=== PATIENT | female | born 1940 | race Caucasian/White ===

== ENCOUNTER → 2018-02-18 18:35 | Outpatient (CLI) | payer MEDICARE, OTHER, SELFPAY ==
--- NOTE | 2018-02-18 | DI.RAD.S_ITS ---
PROCEDURE: XR HIP W PEL IF DONE LT 2V INDICATIONS: radiculopathy,pain in left hip TECHNIQUE: AP pelvis with lateral view(s) of the left hip. COMPARISON: [facility], , HIP 2V LEFT, 01/19/2012, 13:51. FINDINGS: Bones: No fractures or dislocations. Pelvic ring appears intact. No suspicious bony lesions. Prior right total hip arthroplasty, previously described spine posterior fusion devices are again noted. Soft tissues: The visualized bowel gas pattern is normal. No suspicious soft tissue calcifications. IMPRESSION: Source of new pain at the left hip is not. Prior right total hip arthroplasty and spine fusion device is stable over time. Dictated by: Familia Garner M.D. on 02/19/2018 at 8:36 Approved by: Familia Garner M.D. on 02/19/2018 at 8:38
--- NOTE | 2018-02-18 | DI.RAD.S_ITS ---
PROCEDURE: XR LUMBAR SPINE 2-3V INDICATIONS: radiculopathy,pain in left hip TECHNIQUE: 3 views of the lumbar spine were acquired. COMPARISON: [facility], CR, XR LUMBAR SPINE 2 OR 3 VIEWS, 06/24/2017, 15:18. [facility], , PVE UNILATERAL LEFT, 08/31/2017, 13:06. [facility], CR, XR HIP W PEL IF DONE LT 2V, 02/18/2018, 18:29. [facility], CR, L-SPINE 2-3 VIEWS, 12/05/2014, 9:45. [facility], CR, L-SPINE 2-3 VIEWS, 05/02/2014, 16:55. [facility], CR, L-SPINE 2-3 VIEWS, 07/29/2011, 13:00. FINDINGS: Bones: 5 [id number] vertebrae are present. There is stable appearing bony alignment with reference to prior lumbosacral spine plain films, with grade 1 retrolisthesis of L2 on L3 and slight grade 1 retrolisthesis of L3 on L4. Stable appearing posterior spine fusion with interbody disc prosthesis placement is noted again at L4-S1.. No vertebral body compression fractures. No suspicious bony lesions. Soft tissues: Overlying bowel gas pattern is normal. No suspicious soft tissue calcifications. IMPRESSION: No trauma found. Stable appearing degenerative disc disease and facet osteoarthritis along the thoracolumbar junction and lumbosacral spine in this patient has undergone stable appearing prior posterior spine fusion crossing from L4-S1. No compression fracture, chronic or acute, is found. Dictated by: Familia Garner M.D. on 02/19/2018 at 8:33 Approved by: Familia Garner M.D. on 02/19/2018 at 8:36
== END ==
PROVIDERS: PCP Family Medicine; Visit Provider Family Medicine
DX: M51.17 Intervertebral disc disorders with radiculopathy, lumbosacral region (principal); M51.15 Intervertebral disc disorders with radiculopathy, thoracolumbar region; M25.552 Pain in left hip; Z96.641 Presence of right artificial hip joint
CPT/HCPCS: 72100; 73502

== ENCOUNTER → 2018-05-18 17:19 | Outpatient (CLI) | payer MEDICARE, OTHER, SELFPAY ==
--- NOTE | 2018-05-18 17:21 | DI.RAD.S_ITS ---
PROCEDURE: XR CHEST 2V INDICATIONS: BRONCHITIS, cough TECHNIQUE: 2 views of the chest were acquired. COMPARISON: [facility], , CHEST 2 VIEW, 04/22/2017, 14:01. [facility], CHEST 2 VIEW, 10/17/2015, 17:47. [facility], , CHEST 1 VIEW, 12/09/2014, 12:30. FINDINGS: Surgical changes and devices: None. Lungs and pleura: No pleural effusions or pneumothorax. Lungs are clear. Mediastinum: Mediastinal contours are normal again noted are multiple moderate-sized and moderately large calcified lymph nodes stable over time. Heart size is normal. Bones and chest wall: No new suspicious bony abnormalities, and prior thoracotomy on the right appears to have been performed. Soft tissues appear unremarkable. IMPRESSION: Prior right thoracotomy, multiple calcified moderate and moderately large lymph nodes again noted but no definite foreign exchange clerk time and no pneumonia is seen. Dictated by: Familia Garner M.D. on 05/19/2018 at 8:33 Approved by: Familia Garner M.D. on 05/19/2018 at 8:35
--- NOTE | 2018-05-18 17:22 | DI.RAD.S_ITS ---
PROCEDURE: XR ANKLE LT MIN 3V INDICATIONS: LEFT ANKLE PAIN TECHNIQUE: 3 views of the ankle were acquired. COMPARISON: None. FINDINGS: Bones: No definite fractures or dislocations, but the base of the fourth and fifth metatarsal bones are relatively poorly visualized. Ankle mortise is normally aligned. No suspicious bony lesions. Soft tissues: No tibiotalar joint effusion. Achilles tendon appears normal. IMPRESSION: Close clinical followup is recommended given the fact that the base of the fourth and fifth metatarsal bones are relatively poorly visualized. A definite fracture is not seen but is unusual symptoms persist followup delayed plain films or CT scanning would be recommended to more accurately assess those 2 areas. Dictated by: Familia Garner M.D. on 05/19/2018 at 10:31 Approved by: Familia Garner M.D. on 05/19/2018 at 10:32
== END ==
PROVIDERS: PCP Family Medicine; Visit Provider Family Medicine
DX: J20.9 Acute bronchitis, unspecified (principal); M25.572 Pain in left ankle and joints of left foot
CPT/HCPCS: 71046; 73610

== ENCOUNTER 2018-06-10 15:08 | Emergency (ER) | payer MEDICARE, OTHER, SELFPAY ==
[2018-06-10 15:11] VITALS: BP 126/67; PULSE 93; RESP 18; TEMP 36.8; O2SAT 100
--- NOTE | 2018-06-10 15:22 | ED_ITS ---
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 She hit the R. side of her head on the chair arm or floor. She also thinks she bumped her L. hip somehow (she has chronic pain on that side but states that the hip is sore). she denies any LOC. She denies any vision change, nausea or vomiting. She states that she has a very slight headache. She states that she was able to get up and walk with her walker. She takes pain medication for chronic left- sided pain which she took prior to arrival, and she thinks the hip is just sore. She denies any other injury. Denies new pain in her neck, back, or other extremities. She is on warfarin for history of blood clots. Related Data Home Medications Medication Instructions Recorded Confirmed amlodipine [Norvasc] 10 mg PO QDAY #0 tab 06/09/13 06/10/18 cyclobenzaprine 10 mg PO TIDP PRN #0 tab 06/09/13 06/10/18 levothyroxine 0.088 mg PO QDAY #0 tab 06/09/13 06/10/18 simvastatin 40 mg PO BEDTIME #0 tab 06/09/13 06/10/18 albuterol sulfate [Ventolin HFA] 1 puff INHALATION PRN PRN 06/10/18 06/10/18 ascorbic acid (vitamin C) [Vitamin 1 g PO DAILY 06/10/18 06/10/18 C] aspirin 81 mg PO DAILY 06/10/18 06/10/18 budesonide [Pulmicort] 0.5 mg INHALATION BID 06/10/18 06/10/18 calcium carbonate-vitamin D3 1 tab PO BID 06/10/18 06/10/18 [Calcium 600 with Vitamin D3] diclofenac sodium 1 tab PO DAILY 06/10/18 06/10/18 docusate sodium 1 cap PO BID 06/10/18 06/10/18 ferrous sulfate 1 tab PO BID 06/10/18 06/10/18 flaxseed oil 2 cap PO DAILY 06/10/18 06/10/18 fluticasone-salmeterol [Advair 1 puff INHALATION BID 06/10/18 06/10/18 Diskus] hydrocodone-acetaminophen 1 tab PO PRN PRN 06/10/18 06/10/18 multivitamin 1 tab PO DAILY 06/10/18 06/10/18 omeprazole magnesium [Prilosec OTC] 1 tab PO PRN PRN 06/10/18 06/10/18 polyethylene glycol 3350 [Miralax] 17 g PO DAILY PRN 06/10/18 06/10/18 sennosides [senna] 1 tab PO DAILY 06/10/18 06/10/18 warfarin 1 dose PO DIRECTED 06/10/18 06/10/18 Allergies Allergy/AdvReac Type Severity Reaction Status Date / Time Sulfa (Sulfonamide Allergy Severe HIVES Verified 06/10/18 15:13 Antibiotics) [SULFA (SULFONAMIDE ANTIBIOTICS)] latex [LATEX] Allergy Unknown PT Verified 06/10/18 15:13 STATES ONLY WHEN SHE WEARS LATEX GLOVES-DERMATITIS Review of Systems <Lien Pena PA-C - Last Filed: 06/10/18 22:07> Review of Systems All systems reviewed & are unremarkable except as noted in HPI and below Exam <Lien Pena PA-C - Last Filed: 06/10/18 22:07> Narrative Exam Narrative: GENERAL APPEARANCE: Patient sitting comfortably, in no distress. HEENT: Small R. parietal hematoma. No abrasion or laceration. PERRL, EOMI, normal TMs and oropharynx NECK: Supple LUNGS: Clear to auscultation bilaterally. HEART: Rate and rhythm regular without murmur, normal S1 and S2, no S3 or S4. NEUROLOGIC: Alert and oriented, normal speech MUSCULOSKELETAL: Full Csp AROM, no point tenderness over cervical, thoracic or lumbar spine. Mild tenderness over the left lateral and posterior hip. Left lower extremity strength 4/5 all pagan, 5/5 on the right. DERMATOLOGIC: scattered ecchymoses on the upper extremities in various stages of healing, no ecchymoses on the left hip Initial Vital Signs Initial Vital Signs: Vital Signs Temperature 98.3 F 06/10/18 15:11 Pulse Rate 93 H 06/10/18 15:11 Respiratory Rate 18 06/10/18 15:11 Blood Pressure 126/67 06/10/18 15:11 Pulse Oximetry 100 06/10/18 15:11 <Rosy Estes DO - Last Filed: 06/11/18 08:48> Initial Vital Signs Initial Vital Signs: Vital Signs Temperature 98.3 F 06/10/18 15:11 Pulse Rate 93 H 06/10/18 15:11 Respiratory Rate 18 06/10/18 15:11 Blood Pressure 126/67 06/10/18 15:11 Pulse Oximetry 100 06/10/18 15:11 Course <Lien Pena PA-C - Last Filed: 06/10/18 22:07> Orders Ordered: ED Orders 06/10/18 15:35 CT head/brain wo con Stat XR hip w pel if done LT 2V Stat 06/10/18 15:59 Prothrombin Time INR Stat Vital Signs - 8 hr 06/10/18 15:11 06/10/18 16:44 Temperature 98.3 F Pulse Rate 93 H 83 Respiratory Rate 18 Blood Pressure 126/67 Blood Pressure [Right Arm] 134/53 L Pulse Oximetry 100 93 <DO Evi Villa Last Filed: 06/11/18 08:48> Orders Ordered: ED Orders 06/10/18 15:35 CT head/brain wo con Stat XR hip w pel if done LT 2V Stat 06/10/18 15:59 Prothrombin Time INR Stat Vital Signs - 8 hr 06/10/18 15:11 06/10/18 16:44 Temperature 98.3 F Pulse Rate 93 H 83 Respiratory Rate 18 Blood Pressure 126/67 Blood Pressure [Right Arm] 134/53 L Pulse Oximetry 100 93 MDM - Fall <CAITLIN Diana Last Filed: 06/10/18 22:07> Lab Data Lab Results 06/10/18 Range/Units 15:59 PT 25.8 H (10.1-12.7) SECONDS INR 2.3 H (0.9-1.3) <DO Evi Villa Last Filed: 06/11/18 08:48> Lab Data Lab Results 06/10/18 Range/Units 15:59 PT 25.8 H (10.1-12.7) SECONDS INR 2.3 H (0.9-1.3) Discharge Plan Departure Patient Disposition: Home Clinical Impression: Contusion of head, Acute hip pain Discharge Date/Time: 06/10/18 17:12 Interventions: ED Discharge Assessment Last Done: 06/10/18 17:04 Instructions: DI for Concussion Activity Restrictions/Additional Instructions: There was no acute injury found on your imaging studies. I have given you the instructions for concussion as you may have a very mild one even though you did not lose consciousness. Please take it easy today and be sure to use your walker at all times. Please return as we talked about if you have any acutely worsening symptoms. Otherwise, please follow-up with your PCP next week for recheck to assess your progress and check your INR. (This was at goal, 2.3, on your blood test today). Prescriptions: No Action simvastatin 40 MG tablet 40 mg PO BEDTIME Qty: 0 RF: 0 amlodipine [Norvasc] 5 MG tablet 10 mg PO QDAY Qty: 0 RF: 0 levothyroxine 88 mcg Tablet 0.088 mg PO QDAY Qty: 0 RF: 0 cyclobenzaprine 10 MG tablet 10 mg PO TIDP PRN (Reason: Spasms) Qty: 0 RF: 0 fluticasone-salmeterol [Advair Diskus] 250-50 mcg/dose blister with device 1 puff Inhalation BID RF: 0 hydrocodone-acetaminophen 5-325 mg tablet 1 tab PO PRN PRN (Reason: pain) RF: 0 warfarin 5 mg tablet 1 dose PO DIRECTED RF: 0 diclofenac sodium 75 mg tablet,delayed release (DR/EC) 1 tab PO DAILY RF: 0 albuterol sulfate [Ventolin HFA] 90 mcg/actuation HFA aerosol inhaler 1 puff Inhalation PRN PRN (Reason: Shortness Of Breath) RF: 0 multivitamin Tablet 1 tab PO DAILY RF: 0 sennosides [senna] 8.6 mg Tablet 1 tab PO DAILY RF: 0 ascorbic acid (vitamin C) [Vitamin C] 1,000 mg Tablet 1 g PO DAILY RF: 0 polyethylene glycol 3350 [Miralax] 17 gram Powder In Packet 17 g PO DAILY PRN (Reason: Constipation) RF: 0 aspirin 81 mg Tablet,Delayed Release (Dr/Ec) 81 mg PO DAILY RF: 0 flaxseed oil 1,000 mg Capsule 2 cap PO DAILY RF: 0 ferrous sulfate 325 mg (65 mg iron) Tablet 1 tab PO BID RF: 0 budesonide [Pulmicort] 0.5 mg/2 mL Suspension For Nebulization 0.5 mg INHALATION BID RF: 0 docusate sodium 250 mg Capsule 1 cap PO BID RF: 0 omeprazole magnesium [Prilosec OTC] 20 mg Tablet,Delayed Release (Dr/Ec) 1 tab PO PRN PRN (Reason: Heartburn) RF: 0 calcium carbonate-vitamin D3 [Calcium 600 with Vitamin D3] 600 mg(1,500mg) - 400 unit Capsule 1 tab PO BID RF: 0 Referrals: Sean Ayala MD [Primary Care Provider] - <Rosy Estes DO - Last Filed: 06/11/18 08:48> Cosign ED Attending Cosignature Attestation: I was immediately available in the department for consultation. Documentation has been reviewed. I agree with assessment and plan.
--- NOTE | 2018-06-10 15:35 | DI.RAD.S_ITS ---
PROCEDURE: XR HIP W PEL IF DONE LT 2V INDICATIONS: fall, pain TECHNIQUE: AP pelvis with lateral view(s) of the left hip(s). COMPARISON: [facility], , XR HIP W PEL IF DONE LT 2V, 02/18/2018, 18:29. FINDINGS: Bones: No fractures or dislocations. Pelvic ring appears intact. No suspicious bony lesions. A right hip arthroplasty is seen, without findings of failure or loosening. Lower lumbar spine postoperative changes are partially seen. Soft tissues: The visualized bowel gas pattern is normal. No suspicious soft tissue calcifications. IMPRESSION: No acute fracture can be seen. If there is point tenderness (or other clinical suspicion for a fracture not seen on these images) please consider a dedicated CT for further evaluation. Postoperative change of the right hip and lower lumbar spine can be seen. Dictated by: Nelson Medina M.D. on 06/10/2018 at 15:16 Approved by: Nelson Medina M.D. on 06/10/2018 at 15:18
--- NOTE | 2018-06-10 15:35 | DI.CT.S_ITS ---
PROCEDURE: CT HEAD/BRAIN WO CON INDICATIONS: fall, on warfarin, R. parietal hematoma TECHNIQUE: Noncontrast 4.5 mm thick angled axial sections acquired from the foramen magnum to the vertex, with coronal and sagittal reformats. For radiation dose reduction, the following was used: automated exposure control, adjustment of mA and/or kV according to patient size. COMPARISON: [facility], CT, HEAD WITHOUT CONTRAST, 05/17/2015, 10:13. FINDINGS: Image quality: Excellent. CSF spaces: Basal cisterns are patent. No extra-axial fluid collections. Ventricles are normal in size and shape. There is parenchymal volume loss. This is more pronounced involving the anterior bilateral frontal lobes. Brain: No midline shift. No intracranial masses or hemorrhage. Nash-white matter interface is normal. There continues to be a moderate-sized area of encephalomalacia involving the right frontal/parietal lobes. Skull and face: Calvarium and visualized facial bones are intact, without suspicious lesions. Sinuses: Visualized sinuses and mastoids are clear. IMPRESSION: 1. No acute intracranial hemorrhage. 2. 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 3. Moderate parenchymal volume loss. Dictated by: Arnoldo Sierra M.D. on 06/10/2018 at 15:10 Approved by: Arnoldo Sierra M.D. on 06/10/2018 at 15:11
[2018-06-10 16:18] LABS: INR 2.3 (0.9-1.3); Prothrombin Time 25.8 SECONDS (10.1-12.7)
[2018-06-10 16:44] VITALS: BP 134/53; PULSE 83; O2SAT 93
== END 2018-06-10 17:12 | disposition home or self-care (01) ==
PROVIDERS: Emergency Provider Internal Medicine; PCP Family Medicine
DX: S00.93XA Contusion of unspecified part of head, initial encounter (principal); M25.559 Pain in unspecified hip; W19.XXXA Unspecified fall, initial encounter
CPT/HCPCS: 36415; 70450; 73502; 85610; 99282; 99284

== ENCOUNTER → 2018-07-08 15:55 | Outpatient (CLI) | payer MEDICARE, OTHER, SELFPAY ==
--- NOTE | 2018-07-08 16:03 | DI.US.S_ITS ---
PROCEDURE: US ARTERIAL DUPLEX LE LT INDICATIONS: ACUTE EMBOLISM AND THROMBOSIS OF DEEP TECHNIQUE: Color and pulse Doppler interrogation was performed of the left lower extremity arterial system, with image documentation. COMPARISON: None. FINDINGS: Normal-appearing, triphasic and biphasic waveforms are seen. The flow velocities are likewise within normal limits. No focal area of increased flow velocity is seen to suggest a focal stenosis. Antegrade flow is confirmed to the distal aspects of each of the trifurcation vessels. Scattered atherosclerotic plaque can be seen. IMPRESSION: No hemodynamically significant stenosis can be seen. Dictated by: Nelson Medina M.D. on 07/08/2018 at 16:04 Approved by: Nelson Medina M.D. on 07/08/2018 at 16:06
== END ==
PROVIDERS: Family Provider Family Medicine; PCP Family Medicine; Visit Provider Family Medicine
DX: I82.409 Acute embolism and thrombosis of unspecified deep veins of unspecified lower extremity (principal)
CPT/HCPCS: 93926

== ENCOUNTER → 2018-10-10 16:46 | Outpatient (CLI) | payer MEDICARE, OTHER, SELFPAY ==
--- NOTE | 2018-10-10 16:53 | DI.RAD.S_ITS ---
PROCEDURE: XR CHEST 2V INDICATIONS: J20.9/L03.116 TECHNIQUE: 2 views of the chest were acquired. COMPARISON: [facility], CR, CHEST 1 VIEW, 12/07/2014, 9:17. [facility], CR, XR CHEST 2V, 05/18/2018, 17:01. [facility], CR, CHEST 2 VIEW, 04/22/2017, 14:01. [facility], CT, PE STUDY (CTA CHEST), 06/09/2013, 10:39. FINDINGS: Surgical changes and devices: None. Lungs and pleura: Bibasilar linear opacities are likely atelectasis or scars. No pleural effusions or pneumothorax. Mediastinum: Mediastinal contours are normal. Heart size is normal. Calcified granulomas in the mediastinum and left hilum. Bones and chest wall: Deformity of the right sixth rib. No suspicious bony abnormalities. Soft tissues appear unremarkable. IMPRESSION: 1. Bibasilar atelectasis or scars. 2. Remote granulomatous disease in mediastinum and left hilum. 3. 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 Dictated by: Issa Poe M.D. on 10/10/2018 at 17:59 Approved by: Issa Poe M.D. on 10/10/2018 at 18:03
--- NOTE | 2018-10-10 16:53 | DI.RAD.S_ITS ---
PROCEDURE: XR TIBIA FIBULA RT 2V INDICATIONS: Cellulitis of anterior lower leg. TECHNIQUE: 2 views of the tibia and fibula were acquired. COMPARISON: None. FINDINGS: Bones: No fractures or dislocations. No suspicious bony lesions. There is left knee total arthroplasty. Small knee joint effusion is present. Soft tissues: No suspicious soft tissue calcifications or masses. No soft tissue gas. IMPRESSION: No bony erosions or soft tissue gas. Dictated by: Issa Poe M.D. on 10/10/2018 at 18:03 Approved by: Issa Poe M.D. on 10/10/2018 at 18:04
== END ==
PROVIDERS: Family Provider Family Medicine; PCP Family Medicine; Visit Provider Family Medicine
DX: J20.9 Acute bronchitis, unspecified (principal); L03.116 Cellulitis of left lower limb
CPT/HCPCS: 71046; 73590

== ENCOUNTER → 2018-11-15 18:15 | Outpatient (CLI) | payer MEDICARE, OTHER, SELFPAY ==
--- NOTE | 2018-11-15 18:25 | DI.RAD.S_ITS ---
PROCEDURE: XR CHEST 2V INDICATIONS: COUGH TECHNIQUE: 2 views of the chest were acquired. COMPARISON: [facility], CR, XR CHEST 2V, 10/10/2018, 16:55. FINDINGS: Surgical changes and devices: None. Lungs and pleura: Bibasilar atelectasis/scarring are again seen. No definite focal infiltrate. No pleural effusions or pneumothorax. Mediastinum: Torturous thoracic aorta is seen. Heart size is enlarged. Bones and chest wall: Chronic deformity of right sixth rib is again noted and unchanged area No suspicious bony abnormalities. Soft tissues appear unremarkable. IMPRESSION: No significant changes from previous study. Cardiomegaly and bibasilar scarring/atelectasis. No definite focal infiltrate. Dictated by: Ken Grewal M.D. on 11/15/2018 at 18:47 Approved by: Ken Grewal M.D. on 11/15/2018 at 18:48
== END ==
PROVIDERS: Family Provider Family Medicine; PCP Family Medicine; Visit Provider Family Medicine
DX: J45.909 Unspecified asthma, uncomplicated (principal); R05 Cough; I51.7 Cardiomegaly
CPT/HCPCS: 71046

== ENCOUNTER → 2019-01-12 17:14 | Outpatient (CLI) | payer MEDICARE, OTHER, SELFPAY ==
--- NOTE | 2019-01-12 | DI.RAD.S_ITS ---
PROCEDURE: XR CHEST 2V INDICATIONS: Acute bronchitis, unspecified TECHNIQUE: 2 views of the chest were acquired. COMPARISON: [facility], CR, XR CHEST 2V, 11/15/2018, 18:28. FINDINGS: Surgical changes and devices: None. Lungs and pleura: There is a small right pleural effusion. Prior thoracostomy scar is noted within the right midlung. Streaky opacities are present at the left lung base. These are unchanged from the study dated 11/15/18. Mediastinum: Mediastinal contours are normal. Heart size is normal. Bones and chest wall: No suspicious bony abnormalities. Midright hemithorax rib resection is redemonstrated. Soft tissues appear unremarkable. IMPRESSION: 1. Small right pleural effusion. 2. Radiopacities at the left lung base may represent pulmonary scar, although atelectasis, aspiration, and infection could also cause this appearance. Dictated by: Ce Rodriguez M.D. on 01/13/2019 at 9:06 Approved by: Ce Rodriguez M.D. on 01/13/2019 at 9:07
== END ==
PROVIDERS: PCP Family Medicine; Visit Provider Family Medicine
DX: J20.9 Acute bronchitis, unspecified (principal); J90 Pleural effusion, not elsewhere classified
CPT/HCPCS: 71046

== ENCOUNTER → 2019-01-21 12:29 | Outpatient (CLI) | payer MEDICARE, OTHER, SELFPAY ==
--- NOTE | 2019-01-21 | DI.CT.S_ITS ---
PROCEDURE: CT CHEST WO CON INDICATIONS: PLEURAL EFFUSION TECHNIQUE: Noncontrast 5 mm thick sections acquired from the pulmonary apices to the posterior costophrenic angles. 7 mm thick coronal and sagittal MIP reformats were then acquired. For radiation dose reduction, the following was used: automated exposure control, adjustment of mA and/or kV according to patient size. COMPARISON: [facility], CT, PE STUDY (CTA CHEST), 06/09/2013, 10:39. FINDINGS: Image quality: Excellent. Lungs and pleura: Surgical changes of right lower lobectomy. Irregular, calcific pleural plaquing along the posterior surface in the midlung. Smooth left apical scarring. 4 mm left lateral upper lobe groundglass nodule previously present. Coarsely calcified granulomatous nodules anteriorly in the lingula. Mild left posterior lung base atelectatic change. No pleural effusions or pneumothorax. Central and peripheral airways are patent and normal in caliber. Mediastinum: Heart size is normal. No pericardial effusion. Moderate coarse mitral annular and aortic valvular calcification. 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 No other adenopathy. Thoracic aorta and central pulmonary arteries are normal in size. Esophagus is normal in caliber. Small hiatal hernia. Bones and chest wall: Partial right sixth rib resection. No suspicious bony lesions. No vertebral body compression fractures. No axillary or supraclavicular adenopathy by size criteria. Thyroid gland is normal. Abdomen: Visualized upper abdominal solid organs demonstrate multiple calcified granulomas throughout the liver and spleen. No suspicious masses. IMPRESSION: 1. Interval resolution of pleural effusion. 2. Surgical change of right lower lobectomy without evidence of recurrent disease. 3. Changes of chronic granulomatous disease involving mediastinal nodes, lingula, liver, and spleen. 4. 4 mm left upper lobe lung nodule, stable compared to prior study. Dictated by: Lydia Sheets M.D. on 01/21/2019 at 13:27 Approved by: Lydia Sheets M.D. on 01/21/2019 at 14:36
== END ==
PROVIDERS: PCP Family Medicine; Visit Provider Family Medicine
DX: J90 Pleural effusion, not elsewhere classified (principal); R91.1 Solitary pulmonary nodule
CPT/HCPCS: 71250

== ENCOUNTER → 2019-03-18 16:32 | Outpatient (CLI) | payer MEDICARE, OTHER, SELFPAY ==
--- NOTE | 2019-03-18 16:36 | DI.RAD.S_ITS ---
PROCEDURE: XR ANKLE LT MIN 3V INDICATIONS: LEFT ANKLE PAIN TECHNIQUE: 3 views of the ankle were acquired. COMPARISON: [facility], CR, XR ANKLE LT MIN 3V, 05/18/2018, 17:01. FINDINGS: Bones: No fractures or dislocations. Ankle mortise is normally aligned. No suspicious bony lesions. Soft tissues: No tibiotalar joint effusion. Achilles tendon appears normal. IMPRESSION: Left ankle without acute radiographic abnormalities. Dictated by: Franc Easton M.D. on 03/18/2019 at 17:03 Approved by: Franc Easton M.D. on 03/18/2019 at 17:04
== END ==
PROVIDERS: PCP Family Medicine; Visit Provider Family Medicine
DX: M25.572 Pain in left ankle and joints of left foot (principal)
CPT/HCPCS: 73610

== ENCOUNTER → 2019-06-07 17:59 | Outpatient (CLI) | payer MEDICARE, OTHER, SELFPAY ==
--- NOTE | 2019-06-07 | DI.RAD.S_ITS ---
PROCEDURE: XR HIP W PEL IF DONE RT 2V INDICATIONS: RT HIP PAIN I80.13 TECHNIQUE: AP pelvis with lateral view(s) of the right hip(s). COMPARISON: [facility], CR, XR LUMBAR SPINE 2 OR 3 VIEWS, 06/24/2017, 15:18. [facility], CR, XR HIP W PEL IF DONE LT 2V, 06/10/2018, 15:15. FINDINGS: Bones: No fractures or dislocations. Stable postsurgical changes of lower lumbar fusion and discectomies of L4-S1 without hardware complication. Stable postsurgical changes of right total hip arthroplasty. No bony abnormalities identified underlying the skin marker of the lateral right hip localizing area of palpable concern. Pelvic ring appears intact. No suspicious bony lesions. Soft tissues: The visualized bowel gas pattern is normal. No suspicious soft tissue calcifications. No suspicious soft tissue abnormalities underlying the skin marker. IMPRESSION: Stable radiographic evaluation of the right hip and pelvis without acute fracture or malalignment. Stable postoperative changes of prior lower lumbar fusion and right hip arthroplasty. No evidence for hardware complication. There are no visible soft tissue or osseous abnormalities underlying the skin marker/BB marker noted over the lateral right upper thigh/hip localizing area of palpable concern. Recommend clinical followup with further imaging evaluation as needed with either ultrasound or CT/MRI. Dictated by: Franc Easton M.D. on 06/08/2019 at 12:54 Approved by: Franc Easton M.D. on 06/08/2019 at 12:59
== END ==
PROVIDERS: PCP Family Medicine; Visit Provider Family Medicine
DX: M25.551 Pain in right hip (principal); Z98.1 Arthrodesis status; Z96.641 Presence of right artificial hip joint
CPT/HCPCS: 73502

== ENCOUNTER → 2019-09-21 17:29 | Outpatient (CLI) | payer MEDICARE, OTHER, SELFPAY ==
--- NOTE | 2019-09-21 | DI.RAD.S_ITS ---
PROCEDURE: XR CHEST 2V INDICATIONS: J20.9 TECHNIQUE: 2 views of the chest were acquired. COMPARISON: [facility], , XR CHEST 2V, 01/12/2019, 17:20. [facility], CR, XR CHEST 2V, 11/15/2018, 18:28. FINDINGS: Surgical changes and devices: None. Lungs and pleura: Lungs are clear. No pleural effusions or pneumothorax. Mediastinum: Mediastinal contours are normal. Partially calcified mediastinal adenopathy has been previously present and is again well visualized Heart size is normal. Bones and chest wall: No suspicious bony abnormalities. Soft tissues appear unremarkable. IMPRESSION: Old granulomatous disease, partially calcified lymph nodes within the mediastinum. Dictated by: aFmilia Garner M.D. on 09/21/2019 at 18:29 Approved by: Familia Garner M.D. on 09/21/2019 at 18:30
== END ==
PROVIDERS: PCP Family Medicine; Visit Provider Family Medicine
DX: J20.9 Acute bronchitis, unspecified (principal)
CPT/HCPCS: 71046

== ENCOUNTER 2019-09-22 13:02 | Emergency (ER) | payer MEDICARE, OTHER, SELFPAY ==
[2019-09-22 13:16] VITALS: BP 142/70; PULSE 82; RESP 15; TEMP 36; BMI 26.2
--- NOTE | 2019-09-22 13:23 | DI.CT.S_ITS ---
PROCEDURE: CT HEAD/BRAIN WO CON INDICATIONS: head injury on coumadin TECHNIQUE: Noncontrast 4.5 mm thick angled axial sections acquired from the foramen magnum to the vertex, with coronal and sagittal reformats. For radiation dose reduction, the following was used: automated exposure control, adjustment of mA and/or kV according to patient size. COMPARISON: [facility], CT, CT HEAD/BRAIN WO CON, 06/10/2018, 15:43. FINDINGS: Image quality: Excellent. CSF spaces: Basal cisterns are patent. No extra-axial fluid collections. Ventricles are prominent in size with corresponding parenchymal volume loss. Brain: No midline shift. No intracranial masses or hemorrhage. Nash-white matter interface is normal. Incidental note is made of a punctate focus of increased density along the right tentorium, which is unchanged since the prior study and of doubtful clinical significance. Encephalomalacia involving the right parietal lobe is unchanged. Skull and face: Calvarium and visualized facial bones are intact, without suspicious lesions. Soft tissue edema/hemorrhage overlying the left supraorbital region is present without an underlying fracture evident. Sinuses: Visualized sinuses and mastoids are clear. IMPRESSION: 1. No acute intracranial hemorrhage. 2. Soft tissue swelling/hemorrhage overlying the left supraorbital region without an underlying displaced fracture. 3. Unchanged area of right parietal encephalomalacia. Dictated by: Arnoldo Sierra M.D. on 09/22/2019 at 12:44 Approved by: Arnoldo Sierra M.D. on 09/22/2019 at 12:46
--- NOTE | 2019-09-22 14:07 | ED_ITS ---
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 She hit her head on the doorframe, then fell backwards, hitting left posterior scalp. She thinks she hit her left arm on the door frame on the way down also, causing a laceration. She states she did not pass out and knew exactly what happened. She denies any vision change, headache, or vomiting. She states that she has some bruising on her arm as well as the laceration but has not noted pain. She states she has nerve pain that is residual from CVA which is unchanged. She has not noted new weakness in the extremities. She denies any pain in her neck or difficulty with movement. No spine pain noted. She does not remember when her last tetanus vaccine was. She takes warfarin due to history of DVT Related Data Home Medications Medication Instructions Recorded Confirmed amlodipine [Norvasc] 10 mg PO DAILY #0 tab 06/09/13 09/22/19 cyclobenzaprine 10 mg PO TIDP PRN #0 tab 06/09/13 09/22/19 levothyroxine 0.088 mg PO DAILY #0 tab 06/09/13 09/22/19 simvastatin 40 mg PO BEDTIME #0 tab 06/09/13 09/22/19 albuterol sulfate [Ventolin HFA] 1 puff INHALATION PRN PRN 06/10/18 09/22/19 ascorbic acid (vitamin C) [Vitamin 1 g PO DAILY 06/10/18 06/10/18 C] aspirin 81 mg PO DAILY 06/10/18 06/10/18 budesonide [Pulmicort] 0.5 mg INHALATION BID 06/10/18 06/10/18 calcium carbonate-vitamin D3 1 tab PO BID 06/10/18 06/10/18 [Calcium 600 with Vitamin D3] diclofenac sodium 75 mg PO DAILY 06/10/18 09/22/19 docusate sodium 1 cap PO BID 06/10/18 06/10/18 ferrous sulfate 1 tab PO BID 06/10/18 06/10/18 flaxseed oil 2 cap PO DAILY 06/10/18 06/10/18 fluticasone propion-salmeterol 1 puff INHALATION BID 06/10/18 09/22/19 [Advair Diskus] hydrocodone-acetaminophen 1 tab PO PRN PRN 06/10/18 09/22/19 multivitamin 1 tab PO DAILY 06/10/18 06/10/18 omeprazole magnesium [Prilosec OTC] 1 tab PO PRN PRN 06/10/18 06/10/18 polyethylene glycol 3350 [Miralax] 17 g PO DAILY PRN 06/10/18 06/10/18 sennosides [senna] 1 tab PO DAILY 06/10/18 06/10/18 warfarin 1 dose PO DIRECTED 06/10/18 06/10/18 Allergies Allergy/AdvReac Type Severity Reaction Status Date / Time Sulfa (Sulfonamide Allergy Severe HIVES Verified 09/22/19 13:16 Antibiotics) [SULFA (SULFONAMIDE ANTIBIOTICS)] latex [LATEX] Allergy Unknown PT Verified 09/22/19 13:16 STATES ONLY WHEN SHE WEARS LATEX GLOVES-DERMATITIS Review of Systems <Lien Pena PA-C - Last Filed: 09/22/19 19:24> Review of Systems ROS Unobtainable: All systems reviewed & are unremarkable except as noted in HPI and below Patient History <Lien Pena PA-C - Last Filed: 09/22/19 19:24> Medical History (Updated 09/22/19 @ 15:44 by Lien Pena PA-C) History of CVA (cerebrovascular accident) (Acute) History of DVT (deep vein thrombosis) (Acute) 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) HTN (hypertension) (Chronic) Weakness of left side of body (Acute) Surgical History (Updated 09/22/19 @ 14:31 by Lien Pena PA-C) Status post lobectomy of lung (Resolved) Status post lumbar surgery (Resolved) Status post revision of total knee replacement (Resolved) Status post THR (total hip replacement) (Resolved) Social History Smoking Status: Former smoker Smoking Status: Former smoker alcohol intake frequency: 0-2 drinks per day Substance Use Type: does not use Exam <Lien Pena PA-C - Last Filed: 09/22/19 19:24> Narrative Exam Narrative: GENERAL APPEARANCE: Patient sitting comfortably, in no distress. HEENT: Left temporal just lateral to the brow there is a purple hematoma, mildly tender, there is a smaller hematoma on the left posterior scalp, nontender. Ecchymoses upper lateral orbit as well, mildly tender, no palpable deformity. No open wounds PERRL, EOMI, normal ear canals, normal nasal and oral mucosa NECK: Supple LUNGS: Coarse breath sounds without wheeze, no cough on exam HEART: Rate and rhythm regular without murmur, normal S1 and S2, no S3 or S4. NEUROLOGIC: Alert and oriented, normal speech and coordination. MUSCULOSKELETAL: Full Csp AROM, no point tenderness over the cervical or upper thoracic spine. Left upper extremity reduced range of motion at the shoulder, normal range of motion at the elbow, wrist, and fingers. No bony or joint point tenderness, no snuffbox tenderness. DERMATOLOGIC: Ecchymoses as noted left zoroastrian. Patchy ecchymoses over the left upper extremity most notable over the forearm. There is a wedge shaped lace ration/avulsion proximal left anterior forearm approximately 4 cm total length, irregular depth maximum 3mm. Overlying tissue is mostly avulsed with ecchymoses EXTREMITIES: Upper extremities warm and pink, no cyanosis or edema Initial Vital Signs Initial Vital Signs: Vital Signs Temperature 96.8 F L 09/22/19 13:16 Pulse Rate 82 09/22/19 13:16 Respiratory Rate 15 09/22/19 13:16 Blood Pressure 142/70 H 09/22/19 13:16 <Rito Jimenez DO - Last Filed: 09/22/19 19:26> Initial Vital Signs Initial Vital Signs: Vital Signs Temperature 96.8 F L 09/22/19 13:16 Pulse Rate 82 09/22/19 13:16 Respiratory Rate 15 09/22/19 13:16 Blood Pressure 142/70 H 09/22/19 13:16 Procedures <Lien Pena PA-C - Last Filed: 09/22/19 19:24> Laceration Repair Laceration 1: Site: upper extremity ( ) Side (If applicable): left Size (cm): 4 Description: flap Depth: simple, single layer Local Anesthetic: lidocaine 1% and with epi Amount of anesthesia used (mL): 3 Pre-repair: irrigated extensively and deep structures intact Skin layer closed with: nylon Size (cm): 5-0 Number of sutures: 5 Technique: simple, interrupted Course <Lien Pena PA-C - Last Filed: 09/22/19 19:24> Course Additional Information: Wound was largely avulsed, however I was able to place sutures on each side and 1 in the midline where there was enough tissue to protect and partly close this. Steri-Strips and non stick dressing were placed Orders Ordered: ED Orders 09/22/19 13:23 CT head/brain wo con Stat Discontinued Medications Diphtheria/Tetanus/Acell Pertussis (Adacel) 0.5 ml IM .ONCE ONE Stop: 09/22/19 14:27 Last Admin: 09/22/19 14:45 Dose: 0.5 ml Documented by: JULIETH Lidocaine/Epinephrine (Xylocaine 1% W/Epi) 2 ml SUBCUT NOW ONE Stop: 09/22/19 14:27 Last Admin: 09/22/19 14:45 Dose: 2 ml Documented by: JULIETH Vital Signs Vital signs: Vital Signs - 8 hr 09/22/19 13:16 09/22/19 16:15 Temperature 96.8 F L Pulse Rate 82 85 Respiratory Rate 15 14 Blood Pressure 142/70 H Blood Pressure [Right Arm] 129/63 Pulse Oximetry 98 <Rito Jimenez DO - Last Filed: 09/22/19 19:26> Orders Ordered: ED Orders 09/22/19 13:23 CT head/brain wo con Stat Discontinued Medications Diphtheria/Tetanus/Acell Pertussis (Adacel) 0.5 ml IM .ONCE ONE Stop: 09/22/19 14:27 Last Admin: 09/22/19 14:45 Dose: 0.5 ml Documented by: JULIETH Lidocaine/Epinephrine (Xylocaine 1% W/Epi) 2 ml SUBCUT NOW ONE Stop: 09/22/19 14:27 Last Admin: 09/22/19 14:45 Dose: 2 ml Documented by: KBROTEM Vital Signs Vital signs: Vital Signs - 8 hr 09/22/19 13:16 09/22/19 16:15 Temperature 96.8 F L Pulse Rate 82 85 Respiratory Rate 15 14 Blood Pressure 142/70 H Blood Pressure [Right Arm] 129/63 Pulse Oximetry 98 MDM - Head Injury <Lien Pena PA-C - Last Filed: 09/22/19 19:24> Imaging Data CT scan - head: Radiologist's Impression: 16 Lien Pena PA-C Find Patient Imaging - Cinthia Hancock I 79 F 1940 ACTIVITY DATE EXAM STATUS AUTHOR 09/22/19 13:[address] [address] [address] Scan Report Signed Patient: Cinthia Hancock IMR#: [id number] : 8Acct:[id number] Age/Sex: 79 / FDate of Service: 09/22/19 Loc: ED Accession Number: [id number] Procedure: CT head/brain wo con Ordering Provider: Lien Pena P.A-C PROCEDURE: CT HEAD/BRAIN WO CON INDICATIONS: head injury on coumadin TECHNIQUE: Noncontrast 4.5 mm thick angled axial sections acquired from the foramen magnum to the vertex, with coronal and sagittal reformats. For radiation dose reduction, the following was used: automated exposure control, adjustment of mA and/or kV according to patient size. COMPARISON: [facility], CT, CT HEAD/BRAIN WO CON, 06/10/2018, 15:43. FINDINGS: Image quality: Excellent. CSF spaces: Basal cisterns are patent. No extra-axial fluid collections. Ventricles are prominent in size with corresponding parenchymal volume loss. Brain: No midline shift. No intracranial masses or hemorrhage. Nash-white matter interface is normal. Incidental note is made of a punctate focus of increased density along the right tentorium, which is unchanged since the prior study and of doubtful clinical significance. Encephalomalacia involving the right parietal lobe is unchanged. Skull and face: Calvarium and visualized facial bones are intact, without suspicious lesions. Soft tissue edema/hemorrhage overlying the left supraorbital region is present without an underlying fracture evident. Sinuses: Visualized sinuses and mastoids are clear. IMPRESSION: 1. No acute intracranial hemorrhage. 2. Soft tissue swelling/hemorrhage overlying the left supraorbital region without an underlying displaced fracture. 3. Unchanged area of right parietal encephalomalacia. Dictated by: Arnoldo Sierra M.D. on 09/22/2019 at 12:44 Approved by: Arnoldo Sierra M.D. on 09/22/2019 at 12:46 Discharge Plan Departure Patient Disposition: Home Clinical Impression: Hematoma and contusion Contusion of scalp Qualifiers: Encounter type: initial encounter Qualified Code(s): S00.03XA - Contusion of scalp, initial encounter Laceration of arm Qualifiers: Encounter type: initial encounter Laterality: left Qualified Code(s): S41.112A - Laceration without foreign body of left upper arm, initial encounter Discharge Date/Time: 09/22/19 16:25 Instructions: DI for Concussion, DI for Laceration Repair Activity Restrictions/Additional Instructions: I think that you have hematoma and contusion of your scalp where the ?goose eggs? and bruising are. I don't think that you appear to have a concussion right now, however I have given you instructions for this just so you know what to watch for in terms of monitoring. As we talked about, you should return to the ED immediately if you develop new symptoms such as severe headache, vision change, vomiting or mentation changes. Otherwise, you can monitor at home but you should follow-up with your PCP in the next few days for recheck on this as well as the wound on your arm. You have significant bruising and some swelling in addition to the wound, but right now you do not appear to have any joint or bone tenderness so we did not do additional imaging studies. Please keep your sutures and Steri-Strips clean and dry, the sutures are not tight sutures but may help the wound heal a little bit faster and protect it. As we discussed, you should monitor for any sign of infection such as increasing redness, pain or swelling, or new fever or draining pus, and return or see your PCP right away if any of these occur while you are waiting for follow-up. Prescriptions: No Action simvastatin 40 MG tablet 40 mg PO BEDTIME Qty: 0 RF: 0 amlodipine [Norvasc] 5 MG tablet 10 mg PO DAILY Qty: 0 RF: 0 levothyroxine 88 mcg Tablet 0.088 mg PO DAILY Qty: 0 RF: 0 cyclobenzaprine 10 MG tablet 10 mg PO TIDP PRN (Reason: Spasms) Qty: 0 RF: 0 fluticasone propion-salmeterol [Advair Diskus] 250-50 mcg/dose blister with device 1 puff Inhalation BID RF: 0 hydrocodone-acetaminophen 5-325 mg tablet 1 tab PO PRN PRN (Reason: pain) RF: 0 warfarin 5 mg tablet 1 dose PO DIRECTED RF: 0 diclofenac sodium 75 mg tablet,delayed release (DR/EC) 75 mg PO DAILY RF: 0 albuterol sulfate [Ventolin HFA] 90 mcg/actuation HFA aerosol inhaler 1 puff Inhalation PRN PRN (Reason: Shortness Of Breath) RF: 0 multivitamin Tablet 1 tab PO DAILY RF: 0 sennosides [senna] 8.6 mg Tablet 1 tab PO DAILY RF: 0 ascorbic acid (vitamin C) [Vitamin C] 1,000 mg Tablet 1 g PO DAILY RF: 0 polyethylene glycol 3350 [Miralax] 17 gram Powder In Packet 17 g PO DAILY PRN (Reason: Constipation) RF: 0 aspirin 81 mg Tablet,Delayed Release (Dr/Ec) 81 mg PO DAILY RF: 0 flaxseed oil 1,000 mg Capsule 2 cap PO DAILY RF: 0 ferrous sulfate 325 mg (65 mg iron) Tablet 1 tab PO BID RF: 0 budesonide [Pulmicort] 0.5 mg/2 mL Suspension For Nebulization 0.5 mg INHALATION BID RF: 0 docusate sodium 250 mg Capsule 1 cap PO BID RF: 0 omeprazole magnesium [Prilosec OTC] 20 mg Tablet,Delayed Release (Dr/Ec) 1 tab PO PRN PRN (Reason: Heartburn) RF: 0 calcium carbonate-vitamin D3 [Calcium 600 with Vitamin D3] 600 mg(1,500mg) - 400 unit Capsule 1 tab PO BID RF: 0 Referrals: Sean Ayala MD [Primary Care Provider] -
[2019-09-22] MEDS: LIDOCAINE 1% W/EPI 2 ML SUBCUT (14:45)
[2019-09-22] MEDS: TET,DIPH,PERTUSS(ACELL),VAC/PF 0.5 ML SYRINGE IM (14:45)
[2019-09-22 16:15] VITALS: BP 129/63; PULSE 85; RESP 14; O2SAT 98
== END 2019-09-22 16:25 | disposition home or self-care (01) ==
PROVIDERS: Emergency Provider Internal Medicine; PCP Family Medicine
DX: S41.112A Laceration without foreign body of left upper arm, initial encounter (principal); S00.03XA Contusion of scalp, initial encounter; Z23 Encounter for immunization; Z79.01 Long term (current) use of anticoagulants
CPT/HCPCS: 12002; 70450; 90471; 99284; 90715

== ENCOUNTER 2020-04-26 11:34 | Emergency (ER) | payer MEDICARE, OTHER, SELFPAY ==
[2020-04-26] VITALS (15 sets, daily range): BP systolic 109–165; BP diastolic 55–72; PULSE 87–98; RESP 18; TEMP 36.3; O2SAT 92–100; BMI 25.7
--- NOTE | 2020-04-26 12:02 | ED_ITS ---
HPI - Fall <Giuliana Salazar PA-C - Last Filed: 04/26/20 17:47> General Chief Complaint: Fall Stated Complaint: fall today, on thinners, hit her head Time Seen by Provider: 04/26/20 11:43 Source: patient and family Mode of arrival: Wheelchair History of Present Illness HPI Narrative: This is a well-appearing alert 80-year-old female with a history of asthma and CVA with left-sided deficit, walker use, on Coumadin, who presents after a fall today at home at around 10:00 a.m. with laceration to the back of her head as well as 3/10 headache. She states this was a mechanical fall, she was standing up to walk to the bathroom and her pajamas fell down around her ankles and she reached down to pull them up and lost her balance falling backwards and hitting her head on a ?wooden knitting basket that has two wooden rods sticking out from it and is about a foot high? she thinks she hit the back of her head on 1 of these rods before making contact with the floor. She denies any prodrome of dizziness, lightheadedness denies any dizziness or lightheadedness after the fall, denies any loss of consciousness or vision changes however she says that on her way here she did develop a headache that is in the front and more on the right side. She was evaluated by EMS when this occurred and they wanted to transport her to would be general however she declined transport in preference of coming POV to [facility] and was driven here. Patient states that she has asthma and usually has to use her rescue inha ler whenever she has been wearing a mask, she uses her rescue inhaler upon arrival to the emergency department after taking her mask down. She says she feels like her asthma is about how it normally is right now does not feel she is having exacerbation. She is here with her today. He notes she deals with chronic anemia and is concerned because she had some blood loss today due to this injury. He was at work when this occurred and her fall was unwitnessed. She has no other complaints of injury or pain and says she has been in her normal state of health recently. She states she has not had a fall for quite some time. complaint: fall Onset (ago): hour(s) (2) Fall from: standing Fall witnessed: no Place fall occurred: home Loss of consciousness: none Prolonged down time: no Symptoms prior to fall: none Context: tripped/slipped Location of injury: head (posterior upper scalp) Severity: mild Severity scale (1-10): 3 (headache) Quality: dull Associated symptoms (after fall): headache and other (denies any other symptoms) Related Data Home Medications Medication Instructions Recorded Confirmed amlodipine [Norvasc] 10 mg PO DAILY #0 tab 06/09/13 09/22/19 cyclobenzaprine 10 mg PO TIDP PRN #0 tab 06/09/13 09/22/19 levothyroxine 0.088 mg PO DAILY #0 tab 06/09/13 09/22/19 simvastatin 40 mg PO BEDTIME #0 tab 06/09/13 09/22/19 albuterol sulfate [Ventolin HFA] 1 puff INHALATION PRN PRN 06/10/18 09/22/19 ascorbic acid (vitamin C) [Vitamin 1 g PO DAILY 06/10/18 06/10/18 C] aspirin 81 mg PO DAILY 06/10/18 06/10/18 budesonide [Pulmicort] 0.5 mg INHALATION BID 06/10/18 06/10/18 calcium carbonate-vitamin D3 1 tab PO BID 06/10/18 06/10/18 [Calcium 600 with Vitamin D3] diclofenac sodium 75 mg PO DAILY 06/10/18 09/22/19 docusate sodium 1 cap PO BID 06/10/18 06/10/18 ferrous sulfate 1 tab PO BID 06/10/18 06/10/18 flaxseed oil 2 cap PO DAILY 06/10/18 06/10/18 fluticasone propion-salmeterol 1 puff INHALATION BID 06/10/18 09/22/19 [Advair Diskus] hydrocodone-acetaminophen 1 tab PO PRN PRN 06/10/18 09/22/19 multivitamin 1 tab PO DAILY 06/10/18 06/10/18 omeprazole magnesium [Prilosec OTC] 1 tab PO PRN PRN 06/10/18 06/10/18 polyethylene glycol 3350 [Miralax] 17 g PO DAILY PRN 06/10/18 06/10/18 sennosides [senna] 1 tab PO DAILY 06/10/18 06/10/18 warfarin 1 dose PO DIRECTED 06/10/18 06/10/18 Allergies Allergy/AdvReac Type Severity Reaction Status Date / Time Sulfa (Sulfonamide Allergy Severe HIVES Verified 09/22/19 13:16 Antibiotics) [SULFA (SULFONAMIDE ANTIBIOTICS)] latex [LATEX] Allergy Unknown PT Verified 09/22/19 13:16 STATES ONLY WHEN SHE WEARS LATEX GLOVES-DERMATITIS Review of Systems <Giuliana Salazar PA-C - Last Filed: 04/26/20 17:47> Review of Systems Narrative: GENERAL: Denies chills, fatigue, malaise, fever, sweats. HEENT: Denies sinus pain, ear pain, sore throat, difficulty swallowing, di zziness. RESPIRATORY: Denies dyspnea, cough, wheezing, hemoptysis, sputum. CARDIOVASCULAR: Denies chest pain, palpitations, orthopnea, edema, GASTROINTESTINAL: Denies nausea, vomiting, abdominal pain, diarrhea, constipation, melena. : Denies dysuria, frequency, incontinence, hematuria, urinary retention. MUSCULOSKELETAL: Has some chronic left-sided weakness due to a 2013 stroke, uses a walker, no increased weakness, no joint pain, or bony pain SKIN: Laceration to back of her head up high, losing blood, still oozing, Denies rash, skin lesions, or other NEUROLOGIC: See MSK, Denies weakness, positive for 3/10 headache, negative for numbness, change in speech, confusion, seizures, incoordination. PSYCHIATRIC: No concerning psychosocial issues. 12 point review of systems is negative except for those stated above ROS Unobtainable: All systems reviewed & are unremarkable except as noted in HPI and below Patient History <Giuliana Salazar PA-C - Last Filed: 04/26/20 17:47> Medical History (Updated 04/26/20 @ 14:40 by Giuliana Salazar PA-C) History of CVA (cerebrovascular accident) (Acute) History of DVT (deep vein thrombosis) (Acute) 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) HTN (hypertension) (Chronic) Weakness of left side of body (Acute) Surgical History (Updated 09/22/19 @ 14:31 by Lien Pena PA-C) Status post lobectomy of lung (Resolved) Status post lumbar surgery (Resolved) Status post revision of total knee replacement (Resolved) Status post THR (total hip replacement) (Resolved) Social History Smoking Status: Former smoker Smoking Status: Former smoker alcohol intake frequency: 0-2 drinks per day Substance Use Type: does not use Exam <Giuliana Salazar PA-C - Last Filed: 04/26/20 17:47> Narrative Exam Narrative: GENERAL: 80 year old alert patient appears stated age. Well-nourished, well-developed patient, in mild distress. HEAD: There is an approximately 3 cm x 5 cm hematoma on the mid posterior head, some matted dried but mostly wet blood mixed in with her hair, on initial exam bleeding appears to be controlled with direct pressure/gauze and wrap that was applied prior to arrival. Does not appear to be bleeding significantly, but is oozing. Otherwise Atraumatic. Normocephalic. EYES: Pupils equal round and reactive. Extraocular motions intact. No scleral icterus. No injection or drainage. ENT: Nose without bleeding, purulent drainage. Throat without erythema, to nsillar hypertrophy or exudate. Airway patent. Bite is normal. NECK: Trachea midline. Non tender paraspinal muscles, non tender spinout processes. CARDIOVASCULAR: Regular rate and rhythm without murmurs, gallops, or rubs. RESPIRATORY: Breath sounds equal bilaterally. Expiratory wheezes in the upper pagan, good air movement in all pagan, no, rales, or rhonchi. GASTROINTESTINAL: Abdomen soft, non-tender, nondistended. EXTREMITIES: No edema or joint tenderness. BACK: Nontender without deformity or crepitance. No flank tenderness. NEURO: AOx3. Cranial nerves intact. Strength is intact, upper extremities 5/5 bilaterally, lower extremity strength is 4/5 on the left 5/5 on the right, jana ent states she has some chronic weakness in the left leg. SKIN: No rash or erythema of visible areas Initial Vital Signs Initial Vital Signs: Vital Signs Pulse Rate 97 H 04/26/20 11:42 Pulse Oximetry 97 04/26/20 11:42 <Sean Santiago MD - Last Filed: 04/27/20 08:43> Initial Vital Signs Initial Vital Signs: Vital Signs Pulse Rate 97 H 04/26/20 11:42 Pulse Oximetry 97 04/26/20 11:42 Procedures <Giuliana Slaazar PA-C - Last Filed: 04/26/20 17:47> Laceration Repair Laceration 1: Site: scalp (posterior) Side (If applicable): left (slightly left of midline) Size (cm): 1.3 Description: irregular (annular and z-shaped) Depth: [id number] Pre-repair: wound explored, irrigated extensively and deep structures intact Skin layer closed with: sofía (5) Course <Giuliana Salazar PA-C - Last Filed: 04/26/20 17:47> Course Course Narrative: After CT when lab came to draw the patient, they reported to tech and RN that the patient was bleeding a lot, pt had indeed continued to ooze blood; washed out the scalp with multiple 500 mL bottles sterile water, patient does appear to have a small arterial bleed and her posterior scalp plaque, spurting wants, well controlled with direct pressure but does continue to bleed after gauze is removed. Dr. Santiago is consulted regarding sofía versus possibly a suture prior to sofía try to control the bleeding. He also examined the patient and believes we should staple, patient received [address] sof[address] Santiago in order to get the bleeding controlled. She was then pressure bandaged with sterile gauze and coban and left to rest for 30 minutes prior to reassessment. 13:18 Reassessed the patient's scalp, in the bleeding does appear to have been controlled with direct pressure and the sofía that were put in. Pt states her headache has resolved. I discussed the patient's labs with the patient and her , including her H&H, I do not have access to her previous labs for comparison, however has been reports chronic anemia, her H&H is slightly low today but not significantly, and given that her bleeding is now controlled I do not anticipate this continuing to drop. Patient still reports no symptoms of dizziness lightheadedness vision changes, or any other symptoms. 14:01 Orders Ordered: ED Orders 04/26/20 11:45 EKG-12 Lead Stat 04/26/20 12:01 CT head/brain wo con Stat 04/26/20 12:47 Complete Blood Count AUTO DIFF Stat Comprehensive Metabolic Panel Stat Partial Thromboplastin Time Stat Prothrombin Time INR Stat 04/26/20 14:14 Urine Culture Stat Urine Microscopic Stat Vital Signs Vital signs: Vital Signs - 8 hr 04/26/20 11:42 04/26/20 11:46 04/26/20 12:00 Temperature 97.4 F L Pulse Rate 97 H 95 H 93 H Pulse Rate [Orthostatic Lying] Pulse Rate [Orthostatic Sitting] Pulse Rate [Orthostatic Standing] Respiratory Rate 18 Blood Pressure 165/72 H Blood Pressure [Orthostatic Lying] Blood Pressure [Orthostatic Sitting] Blood Pressure [Orthostatic Standing] Pulse Oximetry 97 92 100 04/26/20 12:01 04/26/20 12:26 04/26/20 12:30 Temperature Pulse Rate 92 H 91 H 89 Pulse Rate [Orthostatic Lying] Pulse Rate [Orthostatic Sitting] Pulse Rate [Orthostatic Standing] Respiratory Rate Blood Pressure 147/67 H 153/63 H Blood Pressure [Orthostatic Lying] Blood Pressure [Orthostatic Sitting] Blood Pressure [Orthostatic Standing] Pulse Oximetry 99 97 97 04/26/20 12:31 04/26/20 13:00 04/26/20 13:18 Temperature Pulse Rate 90 90 87 Pulse Rate [Orthostatic Lying] Pulse Rate [Orthostatic Sitting] Pulse Rate [Orthostatic Standing] Respiratory Rate Blood Pressure 153/66 H 145/64 H Blood Pressure [Orthostatic Lying] Blood Pressure [Orthostatic Sitting] Blood Pressure [Orthostatic Standing] Pulse Oximetry 98 97 97 04/26/20 13:30 04/26/20 14:00 04/26/20 14:16 Temperature Pulse Rate 89 88 91 H Pulse Rate [Orthostatic Lying] Pulse Rate [Orthostatic Sitting] Pulse Rate [Orthostatic Standing] Respiratory Rate Blood Pressure 134/63 147/67 H 143/66 H Blood Pressure [Orthostatic Lying] Blood Pressure [Orthostatic Sitting] Blood Pressure [Orthostatic Standing] Pulse Oximetry 96 97 97 04/26/20 14:18 04/26/20 14:20 04/26/20 14:22 Temperature Pulse Rate 94 H 98 H Pulse Rate [Orthostatic Lying] 90 Pulse Rate [Orthostatic Sitting] 91 H Pulse Rate [Orthostatic Standing] 98 H Respiratory Rate Blood Pressure 131/60 109/55 L Blood Pressure [Orthostatic Lying] 143/66 H Blood Pressure [Orthostatic Sitting] 131/60 Blood Pressure [Orthostatic Standing] 109/55 L Pulse Oximetry 97 94 <Sean Santiago MD - Last Filed: 04/27/20 08:43> Orders Ordered: ED Orders 04/26/20 11:45 EKG-12 Lead Stat 04/26/20 12:01 CT head/brain wo con Stat 04/26/20 12:47 Complete Blood Count AUTO DIFF Stat Comprehensive Metabolic Panel Stat Partial Thromboplastin Time Stat Prothrombin Time INR Stat 04/26/20 14:14 Urine Culture Stat Urine Microscopic Stat Vital Signs Vital signs: Vital Signs - 8 hr 04/26/20 11:42 04/26/20 11:46 04/26/20 12:00 Temperature 97.4 F L Pulse Rate 97 H 95 H 93 H Pulse Rate [Orthostatic Lying] Pulse Rate [Orthostatic Sitting] Pulse Rate [Orthostatic Standing] Respiratory Rate 18 Blood Pressure 165/72 H Blood Pressure [Orthostatic Lying] Blood Pressure [Orthostatic Sitting] Blood Pressure [Orthostatic Standing] Pulse Oximetry 97 92 100 04/26/20 12:01 04/26/20 12:26 04/26/20 12:30 Temperature Pulse Rate 92 H 91 H 89 Pulse Rate [Orthostatic Lying] Pulse Rate [Orthostatic Sitting] Pulse Rate [Orthostatic Standing] Respiratory Rate Blood Pressure 147/67 H 153/63 H Blood Pressure [Orthostatic Lying] Blood Pressure [Orthostatic Sitting] Blood Pressure [Orthostatic Standing] Pulse Oximetry 99 97 97 04/26/20 12:31 04/26/20 13:00 04/26/20 13:18 Temperature Pulse Rate 90 90 87 Pulse Rate [Orthostatic Lying] Pulse Rate [Orthostatic Sitting] Pulse Rate [Orthostatic Standing] Respiratory Rate Blood Pressure 153/66 H 145/64 H Blood Pressure [Orthostatic Lying] Blood Pressure [Orthostatic Sitting] Blood Pressure [Orthostatic Standing] Pulse Oximetry 98 97 97 04/26/20 13:30 04/26/20 14:00 04/26/20 14:16 Temperature Pulse Rate 89 88 91 H Pulse Rate [Orthostatic Lying] Pulse Rate [Orthostatic Sitting] Pulse Rate [Orthostatic Standing] Respiratory Rate Blood Pressure 134/63 147/67 H 143/66 H Blood Pressure [Orthostatic Lying] Blood Pressure [Orthostatic Sitting] Blood Pressure [Orthostatic Standing] Pulse Oximetry 96 97 97 04/26/20 14:18 04/26/20 14:20 04/26/20 14:22 Temperature Pulse Rate 94 H 98 H Pulse Rate [Orthostatic Lying] 90 Pulse Rate [Orthostatic Sitting] 91 H Pulse Rate [Orthostatic Standing] 98 H Respiratory Rate Blood Pressure 131/60 109/55 L Blood Pressure [Orthostatic Lying] 143/66 H Blood Pressure [Orthostatic Sitting] 131/60 Blood Pressure [Orthostatic Standing] 109/55 L Pulse Oximetry 97 94 MDM - Fall <Giuliana Salazar PA-C - Last Filed: 04/26/20 17:47> Differential Diagnosis Differential diagnosis: Likely concussion without loss of consciousness and other (scalp laceration, closed head injury, brain bleed) Medical Records Attestation: I reviewed the patient's medical records. Lab Data Attestation: I reviewed the patient's lab results. Result diagrams: 04/26/20 12:47 04/26/20 12:47 Labs: Lab Results 04/26/20 04/26/20 04/26/20 Range/Units 12:47 12:47 12:47 WBC 8.2 (4.5-11.0) X10^3/uL RBC 3.84 L (4.0-5.2) X10^6/uL Hgb 11.2 L (12.0-16.0) g/dL Hct 34.1 L (36-46) % MCV 88.8 (80-100) fL MCH 29.2 (26-34) PG MCHC 32.9 (30-36) % RDW 13.8 (11.6-14.8) % Plt Count 201 (150-400) X10^3/uL Neut % (Auto) 65.5 (50-75) % Lymph % (Auto) 22.7 L (25-40) % Mchenry % (Auto) 7.5 (3-14) % Eos % (Auto) 3.6 (2-4) % Baso % (Auto) 0.7 (0-2) % Neut # (Auto) 5300 (5669-3392) /uL Lymph # (Auto) 1900 (4860-3460) /uL Mchenry # (Auto) 600 (0-900) /uL Eos # (Auto) 300 (0-450) /uL Baso # (Auto) 100 (0-100) /uL PT 28.5 H (10.1-12.7) SECONDS INR 2.5 H (0.9-1.3) APTT 44 H (26.4-36.2) SECONDS Sodium 139 (137-145) mmol/L Potassium 4.5 (3.4-5.1) mmol/L Chloride 106 (98-107) mmol/L Carbon Dioxide 25 (22-32) mmol/L BUN 30 H (7-17) mg/dL Creatinine 0.86 (0.52-1.04) mg/dL Estimated GFR > 60.0 (>60) mL/min BUN/Creatinine Ratio 34.9 H (6-22) Glucose 108 (80-110) mg/dL Calcium 9.4 (8.4-10.2) mg/dL Total Bilirubin 0.5 (0.2-1.3) mg/dL AST 29 (14-36) IU/L ALT 17 (<35) IU/L Alkaline Phosphatase 76 (38-126) U/L Total Protein 7.7 (6.3-8.2) g/dL Albumin 4.3 (3.5-5.0) g/dL Globulin 3.4 (1.7-4.1) g/dL Albumin/Globulin Ratio 1.3 (1.0-2.8) Urine RBC (0-5/HPF) Urine WBC (0-5/HPF) Ur Squamous Epith Cells (0-5/HPF) Urine Bacteria (None) Ur Culture Indicated? 04/26/20 Range/Units 14:14 WBC (4.5-11.0) X10^3/uL RBC (4.0-5.2) X10^6/uL Hgb (12.0-16.0) g/dL Hct (36-46) % MCV (80-100) fL MCH (26-34) PG MCHC (30-36) % RDW (11.6-14.8) % Plt Count (150-400) X10^3/uL Neut % (Auto) (50-75) % Lymph % (Auto) (25-40) % Mchenry % (Auto) (3-14) % Eos % (Auto) (2-4) % Baso % (Auto) (0-2) % Neut # (Auto) (3192-5234) /uL Lymph # (Auto) (3680-9387) /uL Mchenry # (Auto) (0-900) /uL Eos # (Auto) (0-450) /uL Baso # (Auto) (0-100) /uL PT (10.1-12.7) SECONDS INR (0.9-1.3) APTT (26.4-36.2) SECONDS Sodium (137-145) mmol/L Potassium (3.4-5.1) mmol/L Chloride (98-107) mmol/L Carbon Dioxide (22-32) mmol/L BUN (7-17) mg/dL Creatinine (0.52-1.04) mg/dL Estimated GFR (>60) mL/min BUN/Creatinine Ratio (6-22) Glucose (80-110) mg/dL Calcium (8.4-10.2) mg/dL Total Bilirubin (0.2-1.3) mg/dL AST (14-36) IU/L ALT (<35) IU/L Alkaline Phosphatase (38-126) U/L Total Protein (6.3-8.2) g/dL Albumin (3.5-5.0) g/dL Globulin (1.7-4.1) g/dL Albumin/Globulin Ratio (1.0-2.8) Urine RBC None seen (0-5/HPF) Urine WBC 5-10/hpf H (0-5/HPF) Ur Squamous Epith Cells 0-1 /hpf (0-5/HPF) Urine Bacteria Few (2-10) H (None) Ur Culture Indicated? Specimen cultured Urine Dip Bedside Urine Glucose Negative Bedside Urine Bilirubin - Negative Bedside Urine Ketone - Negative Urine Specific [place] 1.020 Bedside Urine Occult Blood - Negative Bedside Urine Protein +/- 15 Bedside Urine Urobilinogen - Negative Bedside Urine Nitrite - Negative Bedside Urine Leukocytes ++ [address] scan - head: Attestation: I personally reviewed and interpreted this imaging study as follows: Radiologist's Impression: [address] [address] [address] Scan Report Signed Patient: Cinthia Hancock IMR#: [id number] : 1940Acct:[id number] Age/Sex: 80 / FDate of Service: 04/26/20 Loc: ED Accession Number: [id number] Procedure: CT head/brain wo con Ordering Provider: Giuliana Salazar P.A-C PROCEDURE: CT HEAD/BRAIN WO CON INDICATIONS: fall from standing/head injury/headache/coumadin TECHNIQUE: Noncontrast 4.5 mm thick angled axial sections acquired from the foramen magnum to the vertex, with coronal and sagittal reformats. For radiation dose reduction, the following was used: automated exposure control, adjustment of mA and/or kV according to patient size. COMPARISON: [facility], CT, HEAD WITHOUT CONTRAST, 03/06/2014, 11:21. [facility], CT, CT HEAD/BRAIN WO CON, 09/22/2019, 13:26. FINDINGS: Image quality: Excellent. CSF spaces: Basal cisterns are patent. No extra-axial fluid collections. Passive expansion of the ventricles and extra-axial spaces due to global cerebral volume loss. Brain: There is no evidence of acute intracranial hemorrhage. When compared with the prior studies dated 09/22/2019, 06/10/2018, and 05/17/2015, there has been progressive increase in size in the area of encephalomalacia with adjacent hypoattenuation in the right frontoparietal region. This suggests progression of ischemic changes surrounding a remote infarct core, worrisome for infarct extension. There are chronic microvascular ischemic changes in both cerebral hemispheres which are similar to the prior study. Global cerebral volume loss is also similar. No findings of mass effect or midline shift. Skull and face: Calvarium and visualized facial bones appear intact, without suspicious lesions. Sinuses: Visualized sinuses and mastoids are clear. IMPRESSION: No acute intracranial hemorrhage. Increased size of hypoattenuation surrounding a remote infarct core in the right frontoparietal region, suggestive of infarct extension. This has been progressive over multiple prior studies and is suggestive of progressive ischemia in this region. If there are clinical symptoms to support a diagnosis of recent ischemia, MRI would be recommended. Vascular imaging such as CT angiogram of the head and neck would also be recommended in this clinical context to assess for potential stenosis. Dictated by: Osmani Muhammad M.D. on 04/26/2020 at 12:26 Approved by: Osmani Muhammad M.D. on 04/26/2020 at 12:31 ECG Data Attestation: I personally reviewed and interpreted this ECG as follows: (Also reviewed by Attending Dr. Santiago) Interpretation: Normal sinus rhythm, 89 beats per minute, MA 158 QRS 90 QT 356 P axis 35, R axis 4 T axis 112 MDM Narrative Medical decision making narrative: Well-appearing and alert and interactive 80-year-old woman presents with her was driven her by her daughter after she had a fall this morning was seen by EMS but declined transport to [facility]. She is on Coumadin, history of CVA, asthma. Walks with a walker. This was a mechanical fall without prodrome. EKG today is unremarkable. Neuro exam is at her baseline. Noncontrast head CT is also unremarkable for bleed. Discussed extensively with the patient and her the importance of monitoring her for any changing symptoms that are neurologic that could be related to a slow head bleed and stressed that if she develops any new symptoms she will need to be re-evaluated. The bleeding laceration on her scalp was controlled as above and procedures and dressed with a pressure bandage. She will follow-up with her primary care in the next 1-4 days ideally tomorrow eduard rgency return precautions are provided, all questions answered.. <Sean Santiago MD - Last Filed: 04/27/20 08:43> Lab Data Labs: Lab Results 04/26/20 04/26/20 04/26/20 Range/Units 12:47 12:47 12:47 WBC 8.2 (4.5-11.0) X10^3/uL RBC 3.84 L (4.0-5.2) X10^6/uL Hgb 11.2 L (12.0-16.0) g/dL Hct 34.1 L (36-46) % MCV 88.8 (80-100) fL MCH 29.2 (26-34) PG MCHC 32.9 (30-36) % RDW 13.8 (11.6-14.8) % Plt Count 201 (150-400) X10^3/uL Neut % (Auto) 65.5 (50-75) % Lymph % (Auto) 22.7 L (25-40) % Mchenry % (Auto) 7.5 (3-14) % Eos % (Auto) 3.6 (2-4) % Baso % (Auto) 0.7 (0-2) % Neut # (Auto) 5300 (5897-3800) /uL Lymph # (Auto) 1900 (7131-2862) /uL Mchenry # (Auto) 600 (0-900) /uL Eos # (Auto) 300 (0-450) /uL Baso # (Auto) 100 (0-100) /uL PT 28.5 H (10.1-12.7) SECONDS INR 2.5 H (0.9-1.3) APTT 44 H (26.4-36.2) SECONDS Sodium 139 (137-145) mmol/L Potassium 4.5 (3.4-5.1) mmol/L Chloride 106 (98-107) mmol/L Carbon Dioxide 25 (22-32) mmol/L BUN 30 H (7-17) mg/dL Creatinine 0.86 (0.52-1.04) mg/dL Estimated GFR > 60.0 (>60) mL/min BUN/Creatinine Ratio 34.9 H (6-22) Glucose 108 (80-110) mg/dL Calcium 9.4 (8.4-10.2) mg/dL Total Bilirubin 0.5 (0.2-1.3) mg/dL AST 29 (14-36) IU/L ALT 17 (<35) IU/L Alkaline Phosphatase 76 (38-126) U/L Total Protein 7.7 (6.3-8.2) g/dL Albumin 4.3 (3.5-5.0) g/dL Globulin 3.4 (1.7-4.1) g/dL Albumin/Globulin Ratio 1.3 (1.0-2.8) Urine RBC (0-5/HPF) Urine WBC (0-5/HPF) Ur Squamous Epith Cells (0-5/HPF) Urine Bacteria (None) Ur Culture Indicated? 04/26/20 Range/Units 14:14 WBC (4.5-11.0) X10^3/uL RBC (4.0-5.2) X10^6/uL Hgb (12.0-16.0) g/dL Hct (36-46) % MCV (80-100) fL MCH (26-34) PG MCHC (30-36) % RDW (11.6-14.8) % Plt Count (150-400) X10^3/uL Neut % (Auto) (50-75) % Lymph % (Auto) (25-40) % Mchenry % (Auto) (3-14) % Eos % (Auto) (2-4) % Baso % (Auto) (0-2) % Neut # (Auto) (5651-8322) /uL Lymph # (Auto) (0414-5484) /uL Mchenry # (Auto) (0-900) /uL Eos # (Auto) (0-450) /uL Baso # (Auto) (0-100) /uL PT (10.1-12.7) SECONDS INR (0.9-1.3) APTT (26.4-36.2) SECONDS Sodium (137-145) mmol/L Potassium (3.4-5.1) mmol/L Chloride (98-107) mmol/L Carbon Dioxide (22-32) mmol/L BUN (7-17) mg/dL Creatinine (0.52-1.04) mg/dL Estimated GFR (>60) mL/min BUN/Creatinine Ratio (6-22) Glucose (80-110) mg/dL Calcium (8.4-10.2) mg/dL Total Bilirubin (0.2-1.3) mg/dL AST (14-36) IU/L ALT (<35) IU/L Alkaline Phosphatase (38-126) U/L Total Protein (6.3-8.2) g/dL Albumin (3.5-5.0) g/dL Globulin (1.7-4.1) g/dL Albumin/Globulin Ratio (1.0-2.8) Urine RBC None seen (0-5/HPF) Urine WBC 5-10/hpf H (0-5/HPF) Ur Squamous Epith Cells 0-1 /hpf (0-5/HPF) Urine Bacteria Few (2-10) H (None) Ur Culture Indicated? Specimen cultured Urine Dip Bedside Urine Glucose Negative Bedside Urine Bilirubin - Negative Bedside Urine Ketone - Negative Urine Specific [place] 1.020 Bedside Urine Occult Blood - Negative Bedside Urine Protein +/- 15 Bedside Urine Urobilinogen - Negative Bedside Urine Nitrite - Negative Bedside Urine Leukocytes ++ 125 Esterase Discharge Plan Departure Patient Disposition: Home Clinical Impression: Fall from standing Qualifiers: Encounter type: initial encounter Qualified Code(s): W19.XXXA - Unspecified fall, initial encounter Laceration of scalp Qualifiers: Encounter type: initial encounter Qualified Code(s): S01.01XA - Laceration without foreign body of scalp, initial encounter Discharge Date/Time: 04/26/20 15:10 Instructions: DI for Laceration Repair -- [place], DI for Laceration Repair of the Scalp, How to Prevent Falls Activity Restrictions/Additional Instructions: Thank you for letting us see part of the care in the emergency department today. You had a negative noncontrast CT scan today which means that you did not have evidence of bleeding inside her brain from your fall, it is important to keep track of your symptoms over the next 24 hours to 7 days if you do develop anything such as vision changes headaches one-sided weakness that is new, dizziness or any other symptoms of concern you may need to be re-evaluated. Your laceration on her scalp was stapled, and because you are on blood thinners it is important to keep this bandage with a pressure bandage for the next 8-24 hours. This may continue to ooze a little bit, but it should not be actively bleeding if there is a pressure bandage on. If you are concerned that the bleeding is not staying controlled. There is no evidence of an emergent or life threatening illness at this time, but follow up with your doctor in 1-2 days is recommended nonetheless to continue to rule out serious underlying causes of your symptoms. I will forward your chart from today's visit to Dr. Ayala as requested. Please call his office for an appointment. Please return to the Emergency Department for any worsening or persistent symptoms. Please take medications as directed. Prescriptions: No Action simvastatin 40 MG tablet 40 mg PO BEDTIME Qty: 0 RF: 0 amlodipine [Norvasc] 5 MG tablet 10 mg PO DAILY Qty: 0 RF: 0 levothyroxine 88 mcg Tablet 0.088 mg PO DAILY Qty: 0 RF: 0 cyclobenzaprine 10 MG tablet 10 mg PO TIDP PRN (Reason: Spasms) Qty: 0 RF: 0 fluticasone propion-salmeterol [Advair Diskus] 250-50 mcg/dose blister with device 1 puff Inhalation BID RF: 0 hydrocodone-acetaminophen 5-325 mg tablet 1 tab PO PRN PRN (Reason: pain) RF: 0 warfarin 5 mg tablet 1 dose PO DIRECTED RF: 0 diclofenac sodium 75 mg tablet,delayed release (DR/EC) 75 mg PO DAILY RF: 0 albuterol sulfate [Ventolin HFA] 90 mcg/actuation HFA aerosol inhaler 1 puff Inhalation PRN PRN (Reason: Shortness Of Breath) RF: 0 multivitamin Tablet 1 tab PO DAILY RF: 0 sennosides [senna] 8.6 mg Tablet 1 tab PO DAILY RF: 0 ascorbic acid (vitamin C) [Vitamin C] 1,000 mg Tablet 1 g PO DAILY RF: 0 polyethylene glycol 3350 [Miralax] 17 gram Powder In Packet 17 g PO DAILY PRN (Reason: Constipation) RF: 0 aspirin 81 mg Tablet,Delayed Release (Dr/Ec) 81 mg PO DAILY RF: 0 flaxseed oil 1,000 mg Capsule 2 cap PO DAILY RF: 0 ferrous sulfate 325 mg (65 mg iron) Tablet 1 tab PO BID RF: 0 budesonide [Pulmicort] 0.5 mg/2 mL Suspension For Nebulization 0.5 mg INHALATION BID RF: 0 docusate sodium 250 mg Capsule 1 cap PO BID RF: 0 omeprazole magnesium [Prilosec OTC] 20 mg Tablet,Delayed Release (Dr/Ec) 1 tab PO PRN PRN (Reason: Heartburn) RF: 0 calcium carbonate-vitamin D3 [Calcium 600 with Vitamin D3] 600 mg(1,500mg) - 400 unit Capsule 1 tab PO BID RF: 0 Referrals: Sean Ayala MD [Primary Care Provider] -
[2020-04-26 12:54] LABS: Add Manual Diff / Slide Review NO; Basophils Absolute Auto 100 /uL (0-100); Basophils Percent Auto 0.7 % (0-2); Eosinophils Absolute Auto 300 /uL (0-450); Eosinophils Percent Auto 3.6 % (2-4); Hematocrit 34.1 % (36-46); Hemoglobin 11.2 g/dL (12.0-16.0); Lymphocytes Absolute Auto 1900 /uL (1100-4500); Lymphocytes Percent Auto 22.7 % (25-40); Mean Corpuscular HGB Conc 32.9 % (30-36); Mean Corpuscular Hemoglobin 29.2 PG (26-34); Mean Corpuscular Volume 88.8 fL (80-100); Monocytes Absolute Auto 600 /uL (0-900); Monocytes Percent Auto 7.5 % (3-14); Neutrophils Absolute Auto 5300 /uL (1500-7000); Neutrophils Percent Auto 65.5 % (50-75); Platelet Count 201 X10^3/uL (150-400); Red Blood Cell Count 3.84 X10^6/uL (4.0-5.2); Red Cell Distribution Width 13.8 % (11.6-14.8); White Blood Cell Count 8.2 X10^3/uL (4.5-11.0)
[2020-04-26 13:01] LABS: INR 2.5 (0.9-1.3); Prothrombin Time 28.5 SECONDS (10.1-12.7)
[2020-04-26 13:04] LABS: PTT Partial Thromboplastin Tim 44 SECONDS (26.4-36.2)
[2020-04-26 13:06] LABS: Alanine Aminotransferase 17 IU/L (<35); Albumin 4.3 g/dL (3.5-5.0); Albumin Globulin Ratio 1.3 (1.0-2.8); Alkaline Phosphatase 76 U/L (38-126); Aspartate Aminotransferase 29 IU/L (14-36); BUN Creatinine Ratio 34.9 (6-22); Bilirubin Total 0.5 mg/dL (0.2-1.3); Blood Urea Nitrogen 30 mg/dL (7-17); Calcium 9.4 mg/dL (8.4-10.2); Carbon Dioxide 25 mmol/L (22-32); Chloride 106 mmol/L (98-107); Estimated Glomerular Filt Rate > 60.0 mL/min (>60); Globulin 3.4 g/dL (1.7-4.1); Glucose 108 mg/dL (80-110); HEMOLYSIS < 15 (0-50); Potassium 4.5 mmol/L (3.4-5.1); Sodium 139 mmol/L (137-145); Total Protein 7.7 g/dL (6.3-8.2)
[2020-04-26 14:39] LABS: RBC Urine None Seen (0-5/HPF)
[2020-04-26 14:46] LABS: Bacteria Urine Few (2-10); Culture Indicated Urine Specimen Cultured; Squamous Epithelial Cell Urine 0-1 /HPF (0-5/HPF); WBC Urine 5-10/HPF (0-5/HPF)
== END 2020-04-26 15:10 | disposition home or self-care (01) ==
PROVIDERS: Emergency Provider Student in an Organized Health Care Education/Training Program; PCP Family Medicine
DX: S01.01XA Laceration without foreign body of scalp, initial encounter (principal); W19.XXXA Unspecified fall, initial encounter; Z79.01 Long term (current) use of anticoagulants; R51 Headache
CPT/HCPCS: 12001; 36415; 70450; 80053; 81003; 81015; 85025; 85610; 85730; 87086; 93005; 99283; 99284

== ENCOUNTER → 2021-09-03 12:52 | Outpatient (CLI) | payer MEDICARE, OTHER, SELFPAY ==
--- NOTE | 2021-09-03 12:58 | DI.RAD.S_ITS ---
PROCEDURE: XR SHOULDER LT MIN 2V INDICATIONS: SHOULDER PAIN TECHNIQUE: 3 views of the shoulder were acquired. COMPARISON: [facility], CR, XR CHEST 2V, 09/21/2019, 17:35. FINDINGS: Bones: No fractures or dislocations. No suspicious bony lesions. Visualized ribs appear intact. Soft tissues: Calcific density along the superior aspect of the AC joint, which may reflect remote traumatic injury. Mediastinal calcification, which may reflect prior granulomatous change. IMPRESSION: No acute osseous abnormality. Dictated by: Gerardo Guzman M.D. on 09/03/2021 at 14:40 Approved by: Gerardo Guzman M.D. on 09/03/2021 at 14:43
[2021-09-03 14:07] LABS: INR 2.7 (0.9-1.3); Prothrombin Time 31.2 SECONDS (10.1-12.7)
[2021-09-03 14:19] LABS: Alanine Aminotransferase 16 IU/L (<35); Albumin 4.5 g/dL (3.5-5.0); Albumin Globulin Ratio 1.4 (1.0-2.8); Alkaline Phosphatase 78 U/L (38-126); Aspartate Aminotransferase 30 IU/L (14-36); BUN Creatinine Ratio 24.1 (6-22); Bilirubin Total 0.6 mg/dL (0.2-1.3); Blood Urea Nitrogen 20 mg/dL (7-17); Calcium 9.5 mg/dL (8.4-10.2); Carbon Dioxide 28 mmol/L (22-32); Chloride 103 mmol/L (98-107); Estimated Glomerular Filt Rate > 60.0 mL/min (>60); Globulin 3.3 g/dL (1.7-4.1); Glucose 89 mg/dL (80-110); HEMOLYSIS 34 (0-50); Sodium 139 mmol/L (137-145); Total Protein 7.8 g/dL (6.3-8.2)
== END ==
PROVIDERS: PCP Family Medicine; Referring Provider Family Medicine; Visit Provider Family Medicine
DX: M25.512 Pain in left shoulder (principal); D50.9 Iron deficiency anemia, unspecified; I63.50 Cerebral infarction due to unspecified occlusion or stenosis of unspecified cerebral artery; E03.9 Hypothyroidism, unspecified; E78.2 Mixed hyperlipidemia; I10 Essential (primary) hypertension; Z79.01 Long term (current) use of anticoagulants
CPT/HCPCS: 36415; 73030; 80053; 85610

== ENCOUNTER → 2021-12-13 13:53 | Outpatient (CLI) | payer MEDICARE, OTHER, SELFPAY ==
--- NOTE | 2021-12-13 | DI.RAD.S_ITS ---
PROCEDURE: XR HIP W PEL IF DONE LT 2V INDICATIONS: left hip and low back pain TECHNIQUE: 2 view(s) of the hip acquired. COMPARISON: [facility], [place], XR HIP W PEL IF DONE LT 2V, 06/10/2018, 15:15. FINDINGS: Bones: Patient is status post right total hip arthroplasty, with hardware components in expected positions. The hip joint appears congruent. The visualized bony structures appear intact. There are mild to moderate degenerative changes in the left hip characterized by joint space narrowing and marginal osteophytosis. No significant degenerative changes of the sacroiliac joints. Lumbar spine posterior fixation hardware noted. Soft tissues: Overlying postoperative changes are noted. No suspicious soft tissue densities. IMPRESSION: No acute finding. Left hip degenerative changes. No acute finding of the right total hip prosthesis. Dictated by: Osmani Muhammad M.D. on 12/13/2021 at 15:12 Approved by: Osmani Muhammad M.D. on 12/13/2021 at 15:13
--- NOTE | 2021-12-13 | DI.RAD.S_ITS ---
PROCEDURE: XR LUMBAR SPINE 2-3V INDICATIONS: left hip and low back pain TECHNIQUE: 3 views of the lumbar spine were acquired. COMPARISON: [facility], CR, XR LUMBAR SPINE 2-3V, 02/18/2018, 18:29. FINDINGS: Bones: 5 oik-[id number] vertebrae are present. There is mild diffuse leftward curvature of the mid/lower lumbar spine. Posterior fusion hardware at L4-S1 is present. Interbody devices at L4-L5 and L5-S1. Mild grade 1 retrolisthesis L2 on L3, as before. Multilevel disc space narrowing and endplate osteophyte formation, as well as facet hypertrophy throughout the lumbar and lower thoracic spine. No vertebral body compression fractures. No suspicious bony lesions. Soft tissues: Overlying bowel gas pattern is normal. No suspicious soft tissue calcifications. IMPRESSION: 1. Multilevel degenerative disc and facet disease. 2. No acute fracture. No osseous lesion. If symptoms and/or clinical suspicion for pathology persist, further assessment with repeat, or advanced imaging (e.g., CT, MRI, or bone scan) may be helpful for further assessment. Dictated by: Kacey Lainez M.D. on 12/13/2021 at 14:43 Approved by: Kacey Lainez M.D. on 12/13/2021 at 14:44
== END ==
PROVIDERS: PCP Family Medicine; Referring Provider Family Medicine; Visit Provider Family Medicine
DX: M51.36 Other intervertebral disc degeneration, lumbar region (principal); M25.552 Pain in left hip; M54.50 Low back pain, unspecified; Z98.1 Arthrodesis status; Z96.642 Presence of left artificial hip joint
CPT/HCPCS: 72100; 73502

== ENCOUNTER → 2022-01-28 10:41 | Outpatient (CLI) | payer MEDICARE, OTHER, SELFPAY ==
--- NOTE | 2022-01-28 10:44 | DI.CT.S_ITS ---
PROCEDURE: CT LUMBAR SPINE WO CON INDICATIONS: LOW BACK AND LEFT HIP PAIN TECHNIQUE: Noncontrast 3 mm thick sections acquired from the T12 level to the sacrum. Sagittal and coronal reformats were constructed. For radiation dose reduction, the following was used: automated exposure control. COMPARISON: None. FINDINGS: Image quality: Excellent. Bones: Postsurgical changes compatible with L4-S1 TLIF. Orthopedic hardware is in expected position. Orthopedic hardware is intact. No lucencies identified at the bone-hardware interface. There is approximately 6 millimeters of L2-L3 retrolisthesis. There is convex left scoliosis of the lumbar spine. No acute vertebral body compression fractures. No suspicious lytic or blastic bony lesions. No pars defects. T12-L1: Disc height is normal. Vacuum disc phenomenon. Mild, diffuse disc bulge. No central stenosis. No neural foraminal narrowing. No neural compression. L1-L2: Loss of disc height. Vacuum disc phenomenon. Mild, diffuse disc bulge. Mild bilateral facet hypertrophy. Mild narrowing of the central canal. Moderate right and mild left neural foraminal narrowing. No neural compression L2-L3: Loss of disc height. Vacuum disc phenomenon. Mild, diffuse disc bulge. Mild bilateral facet hypertrophy. Mild to moderate narrowing of the central canal. Moderate bilateral neural foraminal narrowing. No neural compression. L3-L4: Loss of disc height. Vacuum disc phenomenon. Moderate bilateral facet hypertrophy. Moderate narrowing of the central canal. Moderate bilateral neural foraminal narrowing. No neural compression L4-L5: Status post fusion. Lxkx-mq-brnaahsf bilateral facet hypertrophy. Mild narrowing of the central canal. Mild right neural foraminal narrowing. No neural compression. L5-S1: Status post fusion. Usws-qj-nmvfklhb bilateral facet hypertrophy. No central stenosis. Mild right and severe left neural foraminal narrowing with compression of the exiting left L5 nerve root. Soft tissues: No retroperitoneal masses or hematomas. Visualized aorta is normal in caliber. IMPRESSION: 1. L4-S1 TLIF. 2. Grade 1 L2-L3 degenerative spondylolisthesis. 3. Multilevel degenerative disc disease. 4. Multilevel facet arthropathy. 5. No severe central canal narrowing. 6. Severe left L5-S1 neural foraminal narrowing with compression of the exiting left L5 nerve root. Dictated by: Arina Guzman MD, PhD on 01/28/2022 at 13:40 Approved by: Arina Guzman MD, PhD on 01/28/2022 at 14:07
--- NOTE | 2022-01-28 10:44 | DI.CT.S_ITS ---
PROCEDURE: CT PEL WO CON INDICATIONS: LOW BACK AND LEFT HIP PAIN TECHNIQUE: Noncontrast 3 mm axial sections acquired through the bony pelvis, with coronal and sagittal reformatting. COMPARISON: [facility], CR, XR HIP W PEL IF DONE LT 2V, 12/13/2021, 13:47. FINDINGS: Image quality: Excellent. Bones: Right hip arthroplasty has been performed. Lumbosacral fusion hardware is present. Mild joint space narrowing and periarticular osteophyte formation at the left hip joint. No fracture nor osseous lesion. Soft tissues: Visualized bowel loops and vasculature are normal in caliber. No adenopathy. IMPRESSION: 1. Postsurgical sequelae. 2. Left hip osteoarthritis. 3. No fracture. Dictated by: Kacey Lainez M.D. on 01/28/2022 at 11:47 Approved by: Kacey Lainez M.D. on 01/28/2022 at 11:49
== END ==
PROVIDERS: PCP Family Medicine; Referring Provider Family Medicine; Visit Provider Family Medicine
DX: M25.552 Pain in left hip (principal); M54.50 Low back pain, unspecified; M16.12 Unilateral primary osteoarthritis, left hip; M43.16 Spondylolisthesis, lumbar region; M51.36 Other intervertebral disc degeneration, lumbar region; M47.816 Spondylosis without myelopathy or radiculopathy, lumbar region; M47.817 Spondylosis without myelopathy or radiculopathy, lumbosacral region; M48.07 Spinal stenosis, lumbosacral region; Z96.641 Presence of right artificial hip joint; Z98.1 Arthrodesis status
CPT/HCPCS: 72131; 72192

== ENCOUNTER → 2022-04-10 13:36 | Outpatient (CLI) | payer MEDICARE, OTHER, SELFPAY ==
--- NOTE | 2022-04-10 | DI.RAD.S_ITS ---
PROCEDURE: XR KNEE LT 3V INDICATIONS: RIGHT KNEE PAIN/ RIGHT SHOULDER PAIN TECHNIQUE: 3 views of the knee were acquired. COMPARISON: [facility], , KNEE 3V RIGHT, 05/02/2014, 16:55. FINDINGS: Bones: Expected appearance of total left knee arthroplasty. No evidence of hardware failure or loosening. No fractures or dislocations. No suspicious bony lesions. Soft tissues: No joint effusion. No suspicious soft tissue calcifications. IMPRESSION: Expected appearance of total left knee arthroplasty. Dictated by: Kendall Golden M.D. on 04/10/2022 at 16:13 Approved by: Kendall Golden M.D. on 04/10/2022 at 16:14
--- NOTE | 2022-04-10 | DI.RAD.S_ITS ---
PROCEDURE: XR SHOULDER RT MIN 2V INDICATIONS: RIGHT KNEE PAIN/ RIGHT SHOULDER PAIN TECHNIQUE: 3 views of the shoulder were acquired. COMPARISON: None. FINDINGS: Bones: No fractures or dislocations. No suspicious bony lesions. Mild degenerative joint disease at the acromioclavicular and glenohumeral joint. Partial resection of the right 6th rib. Soft tissues: No suspicious soft tissue calcifications. IMPRESSION: Mild degenerative joint disease. Dictated by: Issa Poe M.D. on 04/10/2022 at 15:50 Approved by: Issa Poe M.D. on 04/10/2022 at 15:57
== END ==
PROVIDERS: PCP Family Medicine; Referring Provider Family Medicine; Visit Provider Family Medicine
DX: M19.011 Primary osteoarthritis, right shoulder (principal); M25.511 Pain in right shoulder; M25.562 Pain in left knee; Z96.652 Presence of left artificial knee joint
CPT/HCPCS: 73030; 73562

== ENCOUNTER 2022-05-29 03:19 | Emergency (ER) | payer MEDICARE, OTHER, SELFPAY ==
[2022-05-29] VITALS (11 sets, daily range): BP systolic 159–219; BP diastolic 69–89; PULSE 77–87; RESP 20–21; TEMP 36.6; O2SAT 95–98; BMI 25.2
[2022-05-29] MEDS: ALBUTEROL 2.5 MG/3 ML NEB (ADULT) INH (03:42)
--- NOTE | 2022-05-29 03:45 | DI.US.S_ITS ---
PROCEDURE: US PERIPH VENOUS LOW EXTREM LT INDICATIONS: PAIN TECHNIQUE: Real-time imaging, as well as color and pulse Doppler interrogation, were performed of the lower extremity deep veins from the inguinal ligament to the popliteal fossa. COMPARISON: None. FINDINGS: The common femoral, femoral and popliteal veins are normally compressible, and free of intraluminal thrombus. Color and pulse Doppler demonstrate normal phasic intraluminal flow. There is normal augmentation response to distal compression maneuver. IMPRESSION: No DVT in the left lower extremity. No significant discrepancy with the rn night radiology preliminary report. Dictated by: Issa Poe M.D. on 05/29/2022 at 8:18 Approved by: Issa Poe M.D. on 05/29/2022 at 8:19
--- NOTE | 2022-05-29 03:45 | DI.RAD.S_ITS ---
PROCEDURE: XR HIP W PEL IF DONE LT 2V INDICATIONS: left hip/leg pain TECHNIQUE: AP pelvis with lateral view(s) of the left hip(s). COMPARISON: [facility], CT, CT PEL WO CON, 01/28/2022, 11:06. [facility], CR, XR HIP W PEL IF DONE LT 2V, 12/13/2021, 13:47. FINDINGS: Bones: No fractures or dislocations. Pelvic ring appears intact. No suspicious bony lesions. There is jvys-ou-hvloqbeq degenerative joint disease in left hip and bilateral sacroiliac joints. Note is made of right hip arthroplasty. Degenerative changes in lower lumbar spine. Soft tissues: The visualized bowel gas pattern is normal. No suspicious soft tissue calcifications. IMPRESSION: 1. No acute osseous abnormalities. 2. Degenerative joint disease. 3. Postsurgical changes in right hip. Dictated by: Issa Poe M.D. on 05/29/2022 at 8:11 Approved by: Issa Poe M.D. on 05/29/2022 at 8:13
--- NOTE | 2022-05-29 03:45 | DI.RAD.S_ITS ---
PROCEDURE: XR KNEE LT 1TO2V INDICATIONS: left hip leg pain TECHNIQUE: 2 view(s) of the knee acquired. COMPARISON: [facility], CR, XR KNEE LT 3V, 04/10/2022, 13:49. FINDINGS: Bones: Patient is status post knee joint arthroplasty. Hardware components are in expected positions. Visualized bony structures are intact. Soft tissues: Overlying postoperative changes are noted. IMPRESSION: Left knee total arthroplasty. No acute abnormalities. No significant discrepancy with the shift manager radiology preliminary report. Dictated by: Issa Poe M.D. on 05/29/2022 at 8:10 Approved by: Issa Poe M.D. on 05/29/2022 at 8:11
--- NOTE | 2022-05-29 03:48 | DI.RAD.S_ITS ---
PROCEDURE: XR CHEST 1V INDICATIONS: sob, hip pain TECHNIQUE: One view of the chest was acquired. COMPARISON: [facility], CR, XR CHEST 2V, 09/21/2019, 17:35. FINDINGS: Surgical changes and devices: None. Lungs and pleura: Chronic left basilar opacity is most likely scars and atelectasis. Chronic blunting of the right costophrenic angle may be secondary to pleural thickening or trace pleural effusion. No pleural effusions or pneumothorax. Mediastinum: Mediastinal contours appear normal. Heart size is normal. Bones and chest wall: Old right 5th and 6th rib fractures are noted. No suspicious bony lesions. Overlying soft tissues appear unremarkable. IMPRESSION: 1. Left basilar scars and atelectasis. 2. Blunting of the right costophrenic angle suggests pleural thickening or trace pleural effusion. 3. Old right rib fractures. No significant discrepancy with the shift leader radiology preliminary report. Dictated by: Issa Poe M.D. on 05/29/2022 at 8:13 Approved by: Issa Poe M.D. on 05/29/2022 at 8:14
--- NOTE | 2022-05-29 03:48 | ED_ITS ---
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 It has been gradually increasing over time p atalonzo had injury in March with a fall but per family patient has had workup as an outpatient with primary care provider. Patient has also had some increasing numbness and tingling in her leg. Patient does have some leftover bruising from her fall, she is had some slight redness in her anterior kent which is sometimes there and sometimes gone. No fevers or chills. Patient denies any chest pain or pressure. She had put a face mask on to come to the ER which exacerbates her asthma so she now feels short of breath but did not before putting on the mask. She denies nausea or vomiting. Denies new swelling in her extremities, denies diarrhea, constipation or urinary symptoms. Patient has been taking [place] 1-2 tablets and cyclobenzaprine for her pain which has been adequate until this even ing. Related Data Home Medications Medication Instructions Recorded Confirmed amlodipine 5 mg tablet (Norvasc) 10 mg PO DAILY #0 tabs 06/09/13 09/22/19 cyclobenzaprine 10 mg tablet 10 mg PO TIDP PRN Spasms #0 tabs 06/09/13 09/22/19 levothyroxine 88 mcg tablet 0.088 mg PO DAILY #0 tabs 06/09/13 09/22/19 simvastatin 40 mg tablet 40 mg PO BEDTIME #0 tabs 06/09/13 09/22/19 albuterol sulfate 90 mcg/actuation 1 puff inhalation PRN PRN 06/10/18 09/22/19 aerosol inhaler Shortness Of Breath ascorbic acid (vitamin C) 1,000 mg 1 g PO DAILY 06/10/18 06/10/18 tablet (Vitamin C) aspirin 81 mg tablet,delayed 81 mg PO DAILY 06/10/18 06/10/18 release budesonide 0.5 mg/2 mL suspension 0.5 mg inhalation BID 06/10/18 06/10/18 for nebulization (Pulmicort) calcium carbonate 600 mg-vitamin 1 tab PO BID 06/10/18 06/10/18 D3 10 mcg (400 unit) capsule (Calcium 600 with Vitamin D3) diclofenac sodium 75 mg 75 mg PO DAILY 06/10/18 09/22/19 tablet,delayed release docusate sodium 250 mg capsule 1 cap PO BID 06/10/18 06/10/18 ferrous sulfate 325 mg (65 mg 1 tab PO BID 06/10/18 06/10/18 iron) tablet flaxseed oil 1,000 mg capsule 2 cap PO DAILY 06/10/18 06/10/18 fluticasone 250 mcg-salmeterol 50 1 puff inhalation BID 06/10/18 09/22/19 mcg/dose blistr powdr for inhalation hydrocodone 5 mg-acetaminophen 325 1 tab PO PRN PRN pain 06/10/18 09/22/19 mg tablet multivitamin 1 tab PO DAILY 06/10/18 06/10/18 omeprazole magnesium 20 mg 1 tab PO PRN PRN Heartburn 06/10/18 06/10/18 tablet,delayed release (Prilosec OTC) polyethylene glycol 3350 17 gram 17 g PO DAILY PRN Constipation 06/10/18 06/10/18 oral powder packet (Miralax) sennosides 8.6 mg tablet (senna) 1 tab PO DAILY 06/10/18 06/10/18 warfarin 5 mg tablet 1 dose PO DIRECTED 06/10/18 06/10/18 Previous Rx's Medication Instructions Recorded methylprednisolone 4 mg tablets in See Rx Instructions PO .COMPLEX 05/29/22 a dose pack (Medrol (Alli)) #15 ea Allergies Allergy/AdvReac Type Severity Reaction Status Date / Time Sulfa (Sulfonamide Allergy Severe HIVES Verified 09/22/19 13:16 Antibiotics) [SULFA (SULFONAMIDE ANTIBIOTICS)] latex [LATEX] Allergy Unknown PT Verified 09/22/19 13:16 STATES ONLY WHEN SHE WEARS LATEX GLOVES-DERMATITIS Review of Systems Review of Systems ROS Unobtainable: All systems reviewed & are unremarkable except as noted in HPI and below Patient History Medical History History of CVA (cerebrovascular accident) History of DVT (deep vein thrombosis) History of DVT in adulthood HTN (hypertension) Weakness of left side of body Surgical History Status post lobectomy of lung Status post lumbar surgery Status post revision of total knee replacement Status post THR (total hip replacement) Social History Smoking Status: Former smoker Smoking Status: Former smoker alcohol intake frequency: 0-2 drinks per day Substance Use Type: does not use Exam Narrative Exam Narrative: GENERAL: Alert and oriented x three, elderly female in mild distress HEENT: Head normocephalic, atraumatic, EOMI, pupils reactive, face symmetric, moist mucous membranes NECK: Supple, full range of motion CARDIOVASCULAR: Regular rate and rhythm without murmurs, rubs or gallops. No tachycardia. RESPIRATORY: Breath sounds equal bilaterally, no wheezes rales or rhonchi. Mild tachypnea. No accessory muscle use. ABDOMEN: Soft, nontender. Normoactive bowel sounds all 4 quadrants. No guarding or rebound, rigidity, no mass : No CVA tenderness EXTREMITIES: Patient has movement left lower extremity but slightly decreased, mild pain throughout the left hip, thigh and knee. Patient has sensation to touch bilaterally. She does have some mild edema erythema in the anterior kent. No clubbing. Neurovascularly intact. No pallor or cyanosis. Cap refill less than 2 seconds bilateral lower extremities. Patient feels most comfortable with her hip slightly flexed as well as her knees flexed. NEUROLOGICAL: Cranial nerves II through XII grossly intact. Moving all extremities SKIN: Warm, dry, no petechiae, no rashes or lesions. Initial Vital Signs Initial Vital Signs: Vital Signs Temperature 97.9 F 05/29/22 03:25 Pulse Rate 80 05/29/22 03:25 Respiratory Rate 21 05/29/22 03:25 Blood Pressure 219/89 H 05/29/22 03:25 Pulse Oximetry 98 05/29/22 03:25 Oxygen Delivery Method 05/29/22 03:25 Course Orders Ordered: Discontinued Medications Albuterol (Albuterol 2.5 Mg/3 Ml Neb (Adult)) 2.5 mg INH NOW ONE Stop: 05/29/22 03:40 Last Admin: 05/29/22 03:42 Dose: 2.5 mg Documented By: FRANCISCO JAVIER Morphine Sulfate (Morphine 4 Mg/Ml Inj) 4 mg IV NOW ONE Stop: 05/29/22 03:48 Last Admin: 05/29/22 04:06 Dose: 4 mg Documented By: RADHA Morphine Sulfate (Morphine 2 Mg/Ml Inj) 2 mg IV NOW ONE Stop: 05/29/22 05:33 Last Admin: 05/29/22 05:46 Dose: 2 mg Documented By: RADHA Prednisone (Prednisone 20 Mg Tablet) 60 mg PO NOW ONE Stop: 05/29/22 05:36 Last Admin: 05/29/22 05:46 Dose: 60 mg Documented By: RADHA Consultations Consultation #1: Dr. Clark, orthopedic surgery discussed patient had CT from 01/28/2022 reviewed findings. He asked for able to get CT robotic protocol of the L-spine which be helpful for surgical planning patient does not require emergent neurosurgery tonight but this would be helpful. Patient can do a Medrol Dosepak if no contraindications. Vital Signs Vital signs: Vital Signs - 8 hr 05/29/22 03:25 05/29/22 03:45 05/29/22 04:27 Temperature 97.9 F Pulse Rate 80 77 Respiratory Rate 21 Blood Pressure 219/89 H Pulse Oximetry 98 98 97 Oxygen Delivery Method Room Air Room Air 05/29/22 04:30 05/29/22 05:00 05/29/22 05:01 Temperature Pulse Rate 78 81 80 Respiratory Rate Blood Pressure Pulse Oximetry 98 96 96 Oxygen Delivery Method 05/29/22 05:02 Temperature Pulse Rate Respiratory Rate Blood Pressure 159/69 H Pulse Oximetry Oxygen Delivery Method MDM - Extremity (Nontraumatic) Lab Data Result diagrams: 05/29/22 04:00 05/29/22 04:00 Labs: Lab Results 05/29/22 05/29/22 05/29/22 Range/Units 04:00 04:00 04:00 WBC 10.3 (4.5-11.0) X10^3/uL RBC 3.77 L (4.0-5.2) X10^6/uL Hgb 11.5 L (12.0-16.0) g/dL Hct 34.7 L (36-46) % MCV 91.9 (80-100) fL MCH 30.5 (26-34) PG MCHC 33.1 (30-36) % RDW 14.0 (11.6-14.8) % Plt Count 302 (150-400) X10^3/uL Neut % (Auto) 71.5 (50-75) % Lymph % (Auto) 19.0 L (25-40) % [place] % (Auto) 6.6 (3-14) % Eos % (Auto) 2.2 (2-4) % Baso % (Auto) 0.7 (0-2) % Neut # (Auto) 7400 H (7896-5854) /uL Lymph # (Auto) 2000 (6820-1402) /uL [place] # (Auto) 700 (0-900) /uL Eos # (Auto) 200 (0-450) /uL Baso # (Auto) 100 (0-100) /uL PT 26.1 H (10.1-12.7) SECONDS INR 2.3 H (0.9-1.3) Sodium 135 L (137-145) mmol/L Potassium 4.5 (3.4-5.1) mmol/L Chloride 97 L (98-107) mmol/L Carbon Dioxide 27 (22-32) mmol/L BUN 20 H (7-17) mg/dL Creatinine 0.65 (0.52-1.04) mg/dL Estimated GFR > 60 (>60) mL/min BUN/Creatinine Ratio 30.8 H (6-22) Glucose 136 H (80-110) mg/dL Lactate (0.7-2.1) mmol/L Calcium 9.3 (8.4-10.2) mg/dL Total Bilirubin 0.4 (0.2-1.3) mg/dL AST 25 (14-36) IU/L ALT 20 (<35) IU/L Alkaline Phosphatase 70 (38-126) U/L Total Creatine Kinase (30-135) U/L CK-MB (CK-2) CK-MB (CK-2) Rel Index Troponin I (0.01-0.034) ng/mL NT-Pro-B Natriuret Pep (<450) pg/mL Total Protein 7.8 (6.3-8.2) g/dL Albumin 4.4 (3.5-5.0) g/dL Globulin 3.4 (1.7-4.1) g/dL Albumin/Globulin Ratio 1.3 (1.0-2.8) Lipase 101 (23-300) U/L 05/29/22 05/29/22 Range/Units 04:00 04:00 WBC (4.5-11.0) X10^3/uL RBC (4.0-5.2) X10^6/uL Hgb (12.0-16.0) g/dL Hct (36-46) % MCV (80-100) fL MCH (26-34) PG MCHC (30-36) % RDW (11.6-14.8) % Plt Count (150-400) X10^3/uL Neut % (Auto) (50-75) % Lymph % (Auto) (25-40) % [place] % (Auto) (3-14) % Eos % (Auto) (2-4) % Baso % (Auto) (0-2) % Neut # (Auto) (4301-1091) /uL Lymph # (Auto) (5347-4784) /uL [place] # (Auto) (0-900) /uL Eos # (Auto) (0-450) /uL Baso # (Auto) (0-100) /uL PT (10.1-12.7) SECONDS INR (0.9-1.3) Sodium (137-145) mmol/L Potassium (3.4-5.1) mmol/L Chloride (98-107) mmol/L Carbon Dioxide (22-32) mmol/L BUN (7-17) mg/dL Creatinine (0.52-1.04) mg/dL Estimated GFR (>60) mL/min BUN/Creatinine Ratio (6-22) Glucose (80-110) mg/dL Lactate 1.4 (0.7-2.1) mmol/L Calcium (8.4-10.2) mg/dL Total Bilirubin (0.2-1.3) mg/dL AST (14-36) IU/L ALT (<35) IU/L Alkaline Phosphatase (38-126) U/L Total Creatine Kinase 49 (30-135) U/L CK-MB (CK-2) TNP CK-MB (CK-2) Rel Index TNP Troponin I < 0.012 (0.01-0.034) ng/mL NT-Pro-B Natriuret Pep 587 H (<450) pg/mL Total Protein (6.3-8.2) g/dL Albumin (3.5-5.0) g/dL Globulin (1.7-4.1) g/dL Albumin/Globulin Ratio (1.0-2.8) Lipase (23-300) U/L Imaging Data Chest x-ray: Radiologist's Impression: No evidence of airspace consolidation. No pneumothorax, pleural effusion or congestive changes. Cardiovascular silhouette is normal. Spondylotic changes thoracic spine. Remote healed right rib fractures. Extremity x-ray #1: Radiologist's Impression: Postsurgical findings of left total knee arthroplasty with adequate postoperative alignment. No joint effusion, osteopenia, no periprosthetic lucency suggest loosening or infection. Extremity x-ray #2: Radiologist's Impression: No acute trauma identified. Degenerative changes of left femoral acetabular joint. Postsurgical findings right hip arthroplasty with adequate postoperative alignment. US - DVT: Radiologist's Impression: No evidence of DVT in left lower extremity. MDM Narrative Medical decision making narrative: This is an 82-year-old female with acute on chronic hip, knee and thigh pain. Patient has had multiple orthopedic surgeries she had a fall in March but has not had any falls recently. Her imaging does not show any acute fracture or break. Patient was short of breath but felt it was from her mask and started immediately after placing her mask. She improved with albuterol, labs do not show any major abnormalities INR is elevated but appropriate today. Patient does have an L-spine CT does show, severe left L5-S1 neural foraminal narrowing with compression of the exiting left L5 nerve root. Patient can not do MRI based on the type of hardware she has. Reviewed patient's chart and found CT that shows severe neural foraminal narrowing at L5-S1 with compression of the nerve root suspect to cause her pain today. After discussion her and her note they have seen Dr. Clark our local spinal surgeon and they have discussed having surgery for this problem but her pain was not as significant at that time. Patient does not meet criteria for emergent neurosurgical evaluation but discussed reaching out to Dr. Clark to see if he would like repeat CT imaging today and they will follow up outpatient. She is taking [place] 2 tablets every 4 hours along with cyclobenzaprine which has helpful up to this point they are open to prednisone. She states she does not tolerate oxycodone well. Spoke with Dr. Clark, he asked for CT L-spine with robotic protocol for surgical planning. Discussed with patient and family and they very politely defer this today and will do it as an outpatient. Discussed that this would help to facilitate her treatment and potential surgery more but they defer. They were offered additional pain medicine prior to imaging or post. Also discussed starting a dose of oral steroid this may be helpful as well. Discharge Plan Departure Patient Disposition: Home Clinical Impression: Left leg pain, Neural foraminal stenosis of lumbosacral spine Instructions: DI for Lumbar Radiculopathy Activity Restrictions/Additional Instructions: As discussed Dr. Clark would like to get a CT with a robotic protocol of your lumbar spine for surgical planning, he would like for you to also call this morning to set up short-term follow-up with him. Your imaging from January of 2022 shows severe left neural foraminal narrowing compressing the exiting left L5 nerve root try suspect is causing the majority of your pain You may continue home medications and pain medications as prescribed. You may start steroids tomorrow you started the 1st dose today. Prescription sent to [facility] in [place]. Please return for fevers, new or rapidly worsening symptoms, loss of sensation, inability to lift your move your leg due to weakness, loss of bowel or bladder control or other new or concerning symptoms. Prescriptions: New methylprednisolone [Medrol (Alli)] 4 mg tablets,dose pack See Rx Instructions .ROUTE .COMPLEX Qty: 15 0RF Rx Instructions: Take 5 tablets p.o. x1 day, then 4 tablets p.o. x1 day, then 3 tablets p.o. x1 day, then 2 tablets p.o. x1 day, then 1 tablet p.o. x1 day No Action simvastatin 40 MG tablet 40 mg PO BEDTIME Qty: 0 amlodipine [Norvasc] 5 MG tablet 10 mg PO DAILY Qty: 0 levothyroxine 88 mcg Tablet 0.088 mg PO DAILY Qty: 0 cyclobenzaprine 10 MG tablet 10 mg PO TIDP PRN (Reason: Spasms) Qty: 0 fluticasone propion-salmeterol [Advair Diskus] 250-50 mcg/dose blister with device 1 puff Inhalation BID hydrocodone-acetaminophen 5-325 mg tablet 1 tab PO PRN PRN (Reason: pain) warfarin 5 mg tablet 1 dose PO DIRECTED diclofenac sodium 75 mg tablet,delayed release (DR/EC) 75 mg PO DAILY albuterol sulfate [Ventolin HFA] 90 mcg/actuation HFA aerosol inhaler 1 puff Inhalation PRN PRN (Reason: Shortness Of Breath) multivitamin Tablet 1 tab PO DAILY sennosides [senna] 8.6 mg Tablet 1 tab PO DAILY ascorbic acid (vitamin C) [Vitamin C] 1,000 mg Tablet 1 g PO DAILY polyethylene glycol 3350 [Miralax] 17 gram Powder In Packet 17 g PO DAILY PRN (Reason: Constipation) aspirin 81 mg Tablet,Delayed Release (Dr/Ec) 81 mg PO DAILY flaxseed oil 1,000 mg Capsule 2 cap PO DAILY ferrous sulfate 325 mg (65 mg iron) Tablet 1 tab PO BID budesonide [Pulmicort] 0.5 mg/2 mL Suspension For Nebulization 0.5 mg INHALATION BID docusate sodium 250 mg Capsule 1 cap PO BID omeprazole magnesium [Prilosec OTC] 20 mg Tablet,Delayed Release (Dr/Ec) 1 tab PO PRN PRN (Reason: Heartburn) calcium carbonate-vitamin D3 [Calcium 600 with Vitamin D3] 600 mg(1,500mg) - 400 unit Capsule 1 tab PO BID Referrals: Rachna Clark MD [Physician] - Sean Ayala MD [Primary Care Provider] - Visit Report Forms: Patient Portal/API
[2022-05-29] MEDS: MORPHINE 4 MG/ML INJ IV (04:06)
[2022-05-29 04:20] LABS: Add Manual Diff / Slide Review NO; Basophils Absolute Auto 100 /uL (0-100); Basophils Percent Auto 0.7 % (0-2); Eosinophils Absolute Auto 200 /uL (0-450); Eosinophils Percent Auto 2.2 % (2-4); Hematocrit 34.7 % (36-46); Hemoglobin 11.5 g/dL (12.0-16.0); Lymphocytes Absolute Auto 2000 /uL (1100-4500); Mean Corpuscular HGB Conc 33.1 % (30-36); Mean Corpuscular Hemoglobin 30.5 PG (26-34); Mean Corpuscular Volume 91.9 fL (80-100); Monocytes Absolute Auto 700 /uL (0-900); Monocytes Percent Auto 6.6 % (3-14); Neutrophils Absolute Auto 7400 /uL (1500-7000); Neutrophils Percent Auto 71.5 % (50-75); Platelet Count 302 X10^3/uL (150-400); Red Blood Cell Count 3.77 X10^6/uL (4.0-5.2); White Blood Cell Count 10.3 X10^3/uL (4.5-11.0)
[2022-05-29 04:28] LABS: Lactate (Lactic Acid) 1.4 mmol/L (0.7-2.1)
[2022-05-29 04:30] LABS: Alanine Aminotransferase 20 IU/L (<35); Albumin 4.4 g/dL (3.5-5.0); Albumin Globulin Ratio 1.3 (1.0-2.8); Alkaline Phosphatase 70 U/L (38-126); Aspartate Aminotransferase 25 IU/L (14-36); BUN Creatinine Ratio 30.8 (6-22); Bilirubin Total 0.4 mg/dL (0.2-1.3); Blood Urea Nitrogen 20 mg/dL (7-17); Calcium 9.3 mg/dL (8.4-10.2); Carbon Dioxide 27 mmol/L (22-32); Chloride 97 mmol/L (98-107); Creatine Kinase 49 U/L (30-135); Estimated Glomerular Filt Rate > 60 mL/min (>60); Globulin 3.4 g/dL (1.7-4.1); Glucose 136 mg/dL (80-110); HEMOLYSIS < 15 (0-50); Lipase 101 U/L (23-300); Potassium 4.5 mmol/L (3.4-5.1); Sodium 135 mmol/L (137-145); Total Protein 7.8 g/dL (6.3-8.2)
[2022-05-29 04:33] LABS: INR 2.3 (0.9-1.3); Prothrombin Time 26.1 SECONDS (10.1-12.7)
[2022-05-29 04:44] LABS: NT-proBNP (BNP-Adult 18+) 587 pg/mL (<450); Troponin I < 0.012 ng/mL (0.01-0.034)
[2022-05-29] MEDS: MORPHINE 2 MG/ML INJ IV (05:46)
[2022-05-29] MEDS: predniSONE 20 MG TABLET 60 MG PO (05:46)
== END 2022-05-29 06:25 | disposition home or self-care (01) ==
PROVIDERS: Emergency Provider Emergency Medicine; PCP Family Medicine
DX: M79.605 Pain in left leg (principal); M48.07 Spinal stenosis, lumbosacral region; R20.0 Anesthesia of skin
CPT/HCPCS: 36415; 71045; 73502; 73560; 80053; 82550; 83605; 83690; 83880; 84484; 85025; 85610; 93971; 94640; 96374; 96376; 99284; J2270; J7613

== ENCOUNTER → 2022-10-06 15:42 | Outpatient (CLI) | payer MEDICARE, OTHER, SELFPAY ==
--- NOTE | 2022-10-06 15:48 | DI.RAD.S_ITS ---
PROCEDURE: XR CHEST 2V INDICATIONS: shortness of breath TECHNIQUE: 2 views of the chest were acquired. COMPARISON: [facility], , XR CHEST 1V, 05/29/2022, 4:11. FINDINGS: Surgical changes and devices: None. Lungs and pleura: Linear opacity in the perihilar region and left lung base. No other dense consolidations. Mediastinum: Mediastinal contours are normal. Heart size is normal. Large calcified left hilar lymph nodes. Bones and chest wall: No suspicious bony abnormalities. Soft tissues appear unremarkable. IMPRESSION: 1. Linear left basilar opacity, probably atelectasis or scarring. Underlying pneumonia is not entirely excluded. 2. Calcified left hilar nodes, chronic. Dictated by: Lydia Sheets M.D. on 10/06/2022 at 17:53 Approved by: Lydia Sheets M.D. on 10/06/2022 at 17:54
--- NOTE | 2022-10-06 15:48 | DI.RAD.S_ITS ---
PROCEDURE: XR SHOULDER LT MIN 2V INDICATIONS: LEFT SHOULDER PAIN TECHNIQUE: Three views of the shoulder were acquired. COMPARISON: [facility], CR, XR SHOULDER RT MIN 2V, 04/10/2022, 13:49. FINDINGS: Bones: No fractures or dislocations. No suspicious bony lesions. Visualized ribs appear intact. Soft tissues: No suspicious soft tissue calcifications. IMPRESSION: Intact left shoulder. Dictated by: Lydia Sheets M.D. on 10/06/2022 at 17:55 Approved by: Lydia Sheets M.D. on 10/06/2022 at 17:55
== END ==
PROVIDERS: PCP Family Medicine; Referring Provider Family Medicine; Visit Provider Family Medicine
DX: J98.4 Other disorders of lung (principal); M25.512 Pain in left shoulder; R06.02 Shortness of breath
CPT/HCPCS: 71046; 73030

== ENCOUNTER → 2022-10-17 14:25 | Outpatient (CLI) | payer MEDICARE, OTHER, SELFPAY ==
--- NOTE | 2022-10-17 | DI.RAD.S_ITS ---
PROCEDURE: XR CHEST 2V INDICATIONS: ATELECTASIS TECHNIQUE: 2 views of the chest were acquired. COMPARISON: [facility], CR, XR CHEST 2V, 10/06/2022, 15:47. [facility], CR, XR CHEST 1V, 05/29/2022, 4:11. FINDINGS: Surgical changes and devices: None. Lungs and pleura: Left basilar atelectasis versus scarring is unchanged. Otherwise lungs are clear. No pleural effusions or pneumothorax. Mediastinum: Mediastinal contours are normal. Heart size is normal. Left hilar calcified lymph nodes are unchanged. Bones and chest wall: No suspicious bony abnormalities. Soft tissues appear unremarkable. IMPRESSION: 1. Left basilar atelectasis versus scarring. 2. Calcified left hilar lymph nodes. Dictated by: Francesco Altamirano M.D. on 10/17/2022 at 15:18 Approved by: Francesco Altamirano M.D. on 10/17/2022 at 15:19
== END ==
PROVIDERS: PCP Family Medicine; Referring Provider Family Medicine; Visit Provider Family Medicine
DX: J98.11 Atelectasis (principal); I89.9 Noninfective disorder of lymphatic vessels and lymph nodes, unspecified
CPT/HCPCS: 71046

== ENCOUNTER 2023-02-11 20:44 | Emergency (ER) | payer MEDICARE, OTHER, SELFPAY ==
[2023-02-11] VITALS (12 sets, daily range): BP systolic 108–145; BP diastolic 53–64; PULSE 89–105; RESP 18–28; TEMP 36.4; O2SAT 88–100; BMI 23.1
--- NOTE | 2023-02-11 20:57 | ED_ITS ---
HPI - General Adult General Chief complaint: Asthma Stated complaint: asthma attack Time Seen by Provider: 02/11/23 20:53 Source: patient and family Mode of arrival: Ambulatory Limitations: no limitations History of Present Illness HPI narrative: Patient is an 82-year-old female. She is a history of high blood pressure. Also has a history of asthma. She states that her asthma has been getting worse over the past couple years (since the start of COVID). She is here because she feels like she is having an asthma attack. Over the past week she is noticed more wheezing and shortness or breath. Denies chest pain. Her home treatments have not been helping. She denies any lower extremity swelling. No palp itations. No fevers. No sore throat. No nausea vomiting. She does use a walker baseline because of the weakness she is having because of a prior stroke. Related Data Home Medications Medication Instructions Recorded Confirmed amlodipine 5 mg tablet (Norvasc) 10 mg PO DAILY #0 tabs 06/09/13 09/22/19 cyclobenzaprine 10 mg tablet 10 mg PO TIDP PRN Spasms #0 tabs 06/09/13 09/22/19 levothyroxine 88 mcg tablet 0.088 mg PO DAILY #0 tabs 06/09/13 09/22/19 simvastatin 40 mg tablet 40 mg PO BEDTIME #0 tabs 06/09/13 09/22/19 albuterol sulfate 90 mcg/actuation 1 puff inhalation PRN PRN 06/10/18 09/22/19 aerosol inhaler Shortness Of Breath ascorbic acid (vitamin C) 1,000 mg 1 g PO DAILY 06/10/18 06/10/18 tablet (Vitamin C) aspirin 81 mg tablet,delayed 81 mg PO DAILY 06/10/18 06/10/18 release budesonide 0.5 mg/2 mL suspension 0.5 mg inhalation BID 06/10/18 06/10/18 for nebulization (Pulmicort) calcium carbonate 600 mg-vitamin 1 tab PO BID 06/10/18 06/10/18 D3 10 mcg (400 unit) capsule (Calcium 600 with Vitamin D3) diclofenac sodium 75 mg 75 mg PO DAILY 06/10/18 09/22/19 tablet,delayed release docusate sodium 250 mg capsule 1 cap PO BID 06/10/18 06/10/18 ferrous sulfate 325 mg (65 mg 1 tab PO BID 06/10/18 06/10/18 iron) tablet flaxseed oil 1,000 mg capsule 2 cap PO DAILY 06/10/18 06/10/18 fluticasone 250 mcg-salmeterol 50 1 puff inhalation BID 06/10/18 09/22/19 mcg/dose blistr powdr for inhalation hydrocodone 5 mg-acetaminophen 325 1 tab PO PRN PRN pain 06/10/18 09/22/19 mg tablet multivitamin 1 tab PO DAILY 06/10/18 06/10/18 omeprazole magnesium 20 mg 1 tab PO PRN PRN Heartburn 06/10/18 06/10/18 tablet,delayed release (Prilosec OTC) polyethylene glycol 3350 17 gram 17 g PO DAILY PRN Constipation 06/10/18 06/10/18 oral powder packet (Miralax) sennosides 8.6 mg tablet (senna) 1 tab PO DAILY 06/10/18 06/10/18 warfarin 5 mg tablet 1 dose PO DIRECTED 06/10/18 06/10/18 Previous Rx's Medication Instructions Recorded methylprednisolone 4 mg tablets in See Rx Instructions PO .COMPLEX 05/29/22 a dose pack (Medrol (Alli)) #15 ea prednisone 20 mg tablet 20 mg PO DAILY 3 days #3 tabs 02/12/23 Allergies Allergy/AdvReac Type Severity Reaction Status Date / Time Sulfa (Sulfonamide Allergy Severe HIVES Verified 02/11/23 20:56 Antibiotics) [SULFA (SULFONAMIDE ANTIBIOTICS)] latex [LATEX] Allergy Unknown PT Verified 02/11/23 20:56 STATES ONLY WHEN SHE WEARS LATEX GLOVES-DERMATITIS Review of Systems Review of Systems ROS Unobtainable: All systems reviewed & are unremarkable except as noted in HPI and below Patient History Medical History History of CVA (cerebrovascular accident) History of DVT (deep vein thrombosis) History of DVT in adulthood HTN (hypertension) Weakness of left side of body Surgical History Status post lobectomy of lung Status post lumbar surgery Status post revision of total knee replacement Status post THR (total hip replacement) Social History (Reviewed 02/12/23 @ 05:29 by ERICKA Mantilla Smoking Status: Former smoker Smoking Status: Former smoker alcohol intake frequency: 0-2 drinks per day Substance Use Type: does not use Exam Initial Vital Signs Initial Vital Signs: Vital Signs Temperature 97.6 F 02/11/23 20:45 Pulse Rate 105 H 02/11/23 20:45 Respiratory Rate 28 H 02/11/23 20:45 Blood Pressure 145/64 H 02/11/23 20:45 Pulse Oximetry 89 L 02/11/23 20:45 Oxygen Delivery Method Room Air 02/11/23 20:45 Const General: cooperative, healthy appearing and No ill appearing HENMT Head: normal to inspection and normocephalic Resp Effort & Inspection: not labored, no respiratory distress, no retractions and tachypneic Auscultation: clear to auscultation bilaterally and wheezes Cardio Rate: regular rate Rhythm: regular rhythm GI Inspection: normal to inspection Neuro General: patient alert and patient awake Extrem General: No edema Course Orders Ordered: ED Orders 02/11/23 20:54 Basic Metabolic Panel Stat Complete Blood Count AUTO DIFF Stat NT-proBNP (BNP-Adult 18+) Stat Troponin & CK Cardiac Panel Stat 02/11/23 20:57 XR chest 1V Stat 02/11/23 20:58 EKG-12 Lead Stat 02/11/23 23:02 Troponin & CK Cardiac Panel Stat Discontinued Medications Albuterol/Ipratropium (Albuterol/Ipratropium 3 Ml Ampul) 3 ml INH Q20M [facility] Stop: 02/11/23 21:41 Last Admin: 02/11/23 21:38 Dose: 3 ml Documented By: Admin: 02/11/23 21:11 Dose: 3 ml Documented By: Admin: 02/11/23 20:59 Dose: 3 ml Documented By: LEEANNA Methylprednisolone (Methylprednisolone 125 Mg/2 Ml Vial) 125 mg IV NOW ONE Stop: 02/11/23 20:58 Last Admin: 02/11/23 21:04 Dose: 125 mg Documented By: YVROSE Vital Signs Vital signs: Vital Signs - 8 hr 02/11/23 21:39 02/11/23 21:30 02/11/23 21:55 Temperature Pulse Rate 90 Respiratory Rate 19 Blood Pressure 120/58 L Pulse Oximetry 96 99 Oxygen Delivery Method Nasal Cannula Nasal Cannula Oxygen Flow Rate 2 1 02/11/23 21:55 02/11/23 22:00 02/11/23 22:00 Temperature Pulse Rate 89 90 Respiratory Rate 26 H 19 Blood Pressure 126/58 L Pulse Oximetry 97 98 Oxygen Delivery Method Room Air Room Air Oxygen Flow Rate 02/12/23 00:09 02/11/23 22:30 02/11/23 22:31 Temperature 97.8 F Pulse Rate 74 92 H 91 H Respiratory Rate 20 22 20 Blood Pressure 128/70 Pulse Oximetry 96 96 95 Oxygen Delivery Method Room Air Room Air Room Air Oxygen Flow Rate 02/11/23 22:31 02/11/23 23:00 02/11/23 23:00 Temperature Pulse Rate 93 H Respiratory Rate 18 Blood Pressure 108/53 L 112/55 L Pulse Oximetry 96 Oxygen Delivery Method Room Air Oxygen Flow Rate 02/11/23 23:30 02/11/23 23:30 Temperature Pulse Rate 96 H Respiratory Rate 20 Blood Pressure 124/64 Pulse Oximetry 96 Oxygen Delivery Method Room Air Oxygen Flow Rate Medical Decision Making Medical Records Medical records reviewed: Yes I reviewed the patient's medical records. Lab Data Lab results reviewed: Yes I reviewed the patient's lab results. 02/11/23 20:54 02/11/23 20:54 Labs: Lab Results 02/11/23 02/11/23 02/11/23 Range/Units 20:54 20:54 23:02 WBC 12.7 H (4.5-11.0) X10^3/uL RBC 3.32 L (4.0-5.2) X10^6/uL Hgb 9.7 L (12.0-16.0) g/dL Hct 29.9 L (36-46) % MCV 90.1 (80-100) fL MCH 29.2 (26-34) PG MCHC 32.5 (30-36) % RDW 14.8 (11.6-14.8) % Plt Count 235 (150-400) X10^3/uL Neut % (Auto) 81.3 H (50-75) % Lymph % (Auto) 11.2 L (25-40) % [place] % (Auto) 5.2 (3-14) % Eos % (Auto) 1.7 L (2-4) % Baso % (Auto) 0.6 (0-2) % Neut # (Auto) 23541 H (1855-2356) /uL Lymph # (Auto) 1400 (4538-0849) /uL [place] # (Auto) 700 (0-900) /uL Eos # (Auto) 200 (0-450) /uL Baso # (Auto) 100 (0-100) /uL Sodium 130 L (137-145) mmol/L Potassium 4.0 (3.4-5.1) mmol/L Chloride 95 L (98-107) mmol/L Carbon Dioxide 24 (22-32) mmol/L BUN 20 H (7-17) mg/dL Creatinine 0.75 (0.52-1.04) mg/dL Estimated GFR > 60 (>60) mL/min BUN/Creatinine Ratio 26.7 H (6-22) Glucose 130 H (80-110) mg/dL Calcium 8.9 (8.4-10.2) mg/dL Total Creatine Kinase 65 62 (30-135) U/L CK-MB (CK-2) TNP TNP CK-MB (CK-2) Rel Index TNP TNP Troponin I 0.037 H 0.052 H (0.01-0.034) ng/mL NT-Pro-B Natriuret Pep 7670 H (<450) pg/mL Imaging Data Chest x-ray: Radiologist's Impression: PROCEDURE:? XR CHEST 1V ? INDICATIONS:? SOB eval for PNA ? TECHNIQUE:? One view of the chest was acquired.? ? COMPARISON:? [facility], , XR CHEST 2V, 10/17/2022, 14:39. ? FINDINGS:? ? Surgical changes and devices:? None.? ? Lungs and pleura:? There is bilateral pulmonary edema.? Small bilateral pleural effusions are present with associated bibasilar compressive atelectasis or consolidation.? No pneumothorax. ? Mediastinum:? Mediastinal contours appear unchanged.? Heart size is normal.? ? Bones and chest wall:? No suspicious bony lesions.? Overlying soft tissues appe ar unremarkable.? ? IMPRESSION:? ? 1. Pulmonary edema with small bilateral pleural effusions and bibasilar compressive atelectasis or consolidation.? ECG Data Attestation: I personally reviewed and interpreted this ECG as follows: Interpretation: Sinus rhythm Ventricular rate 94 Normal axis Normal QRS Nonspecific ST T wave changes MDM Narrative Medical decision making narrative: After nebulizer treatments here in the emergency department the patient states she feels much better. She states she actually feels back to normal. She is not having chest pain. No lower extremity swelling. Her chest x-ray somewhat concerning for pulmonary edema. Her BNP is elevated. Her troponins are greater than the 99th percentile but not above the a mi cut off. She is nonspecific changes on her EKG however are somewhat concerning about ischemia. Had a discussion with the patient and family at bedside. I did inform her that she does have abnormalities noted on her workup today that would potentially be concerning about ACS or CHF/fluid overload. I did recommend that she be admitted to the hospital for further risk stratification testing however the patient states that she felt like she was at baseline and would like to be discharged home. She under stay as risks and benefits of this. Family was at bedside for this and they are in agreement with her going home. Patient ambulated around the department with her walker. She did not become hypoxic. Did not become short of breath. Did not have chest pain. We will discharge patient home with strict return precautions. She was instructed that she needs to talk her primary doctor about further testing. She expressed understanding and agreement with plan. Discharge Plan Departure Patient Disposition: Home Clinical Impression: Asthma with acute exacerbation Instructions: DI for Asthma -- Adult Activity Restrictions/Additional Instructions: despite our discussion about admitting you to the hospital for further evaluation of your heart you opted to be discharged home. I do recommend that you continue to take all of your medications as directed. I also recommend that tomorrow you contact your primary care doctor so they can request the records from this evening. Keep your appointment that you have with him in 1 week from now. Return to the emergency department for new or worsening symptoms. Prescriptions: New prednisone 20 mg tablet 20 mg PO DAILY 3 Days Qty: 3 0RF No Action simvastatin 40 MG tablet 40 mg PO BEDTIME Qty: 0 amlodipine [Norvasc] 5 MG tablet 10 mg PO DAILY Qty: 0 levothyroxine 88 mcg Tablet 0.088 mg PO DAILY Qty: 0 cyclobenzaprine 10 MG tablet 10 mg PO TIDP PRN (Reason: Spasms) Qty: 0 fluticasone propion-salmeterol [Advair Diskus] 250-50 mcg/dose blister with device 1 puff Inhalation BID hydrocodone-acetaminophen 5-325 mg tablet 1 tab PO PRN PRN (Reason: pain) warfarin 5 mg tablet 1 dose PO DIRECTED diclofenac sodium 75 mg tablet,delayed release (DR/EC) 75 mg PO DAILY albuterol sulfate [Ventolin HFA] 90 mcg/actuation HFA aerosol inhaler 1 puff Inhalation PRN PRN (Reason: Shortness Of Breath) multivitamin Tablet 1 tab PO DAILY sennosides [senna] 8.6 mg Tablet 1 tab PO DAILY ascorbic acid (vitamin C) [Vitamin C] 1,000 mg Tablet 1 g PO DAILY polyethylene glycol 3350 [Miralax] 17 gram Powder In Packet 17 g PO DAILY PRN (Reason: Constipation) aspirin 81 mg Tablet,Delayed Release (Dr/Ec) 81 mg PO DAILY flaxseed oil 1,000 mg Capsule 2 cap PO DAILY ferrous sulfate 325 mg (65 mg iron) Tablet 1 tab PO BID budesonide [Pulmicort] 0.5 mg/2 mL Suspension For Nebulization 0.5 mg INHALATION BID docusate sodium 250 mg Capsule 1 cap PO BID omeprazole magnesium [Prilosec OTC] 20 mg Tablet,Delayed Release (Dr/Ec) 1 tab PO PRN PRN (Reason: Heartburn) calcium carbonate-vitamin D3 [Calcium 600 with Vitamin D3] 600 mg(1,500mg) - 400 unit Capsule 1 tab PO BID methylprednisolone [Medrol (Alli)] 4 mg tablets,dose pack See Rx Instructions .ROUTE .COMPLEX Qty: 15 0RF Rx Instructions: Take 5 tablets p.o. x1 day, then 4 tablets p.o. x1 day, then 3 tablets p.o. x1 day, then 2 tablets p.o. x1 day, then 1 tablet p.o. x1 day Referrals: Sean Ayala MD [Primary Care Provider] - Stand Alone Forms: Patient Portal/API
--- NOTE | 2023-02-11 20:57 | DI.RAD.S_ITS ---
PROCEDURE: XR CHEST 1V INDICATIONS: SOB eval for PNA TECHNIQUE: One view of the chest was acquired. COMPARISON: [facility], CR, XR CHEST 2V, 10/17/2022, 14:39. FINDINGS: Surgical changes and devices: None. Lungs and pleura: There is bilateral pulmonary edema. Small bilateral pleural effusions are present with associated bibasilar compressive atelectasis or consolidation. No pneumothorax. Mediastinum: Mediastinal contours appear unchanged. Heart size is normal. Bones and chest wall: No suspicious bony lesions. Overlying soft tissues appear unremarkable. IMPRESSION: 1. Pulmonary edema with small bilateral pleural effusions and bibasilar compressive atelectasis or consolidation. Dictated by: Zhen Duarte M.D. on 02/11/2023 at 22:17 Approved by: Zhen Duarte M.D. on 02/11/2023 at 22:21
[2023-02-11] MEDS: ALBUTEROL/IPRATROPIUM 3 ML AMPUL INH ×3 (20:59→21:38)
[2023-02-11 21:02] LABS: Add Manual Diff / Slide Review NO; Basophils Absolute Auto 100 /uL (0-100); Basophils Percent Auto 0.6 % (0-2); Eosinophils Absolute Auto 200 /uL (0-450); Eosinophils Percent Auto 1.7 % (2-4); Hematocrit 29.9 % (36-46); Hemoglobin 9.7 g/dL (12.0-16.0); Lymphocytes Absolute Auto 1400 /uL (1100-4500); Lymphocytes Percent Auto 11.2 % (25-40); Mean Corpuscular HGB Conc 32.5 % (30-36); Mean Corpuscular Hemoglobin 29.2 PG (26-34); Mean Corpuscular Volume 90.1 fL (80-100); Monocytes Absolute Auto 700 /uL (0-900); Monocytes Percent Auto 5.2 % (3-14); Neutrophils Absolute Auto 10300 /uL (1500-7000); Neutrophils Percent Auto 81.3 % (50-75); Platelet Count 235 X10^3/uL (150-400); Red Blood Cell Count 3.32 X10^6/uL (4.0-5.2); Red Cell Distribution Width 14.8 % (11.6-14.8); White Blood Cell Count 12.7 X10^3/uL (4.5-11.0)
[2023-02-11] MEDS: methylPREDNISolone 125 MG/2 ML VIAL IV (21:04)
[2023-02-11 21:16] LABS: BUN Creatinine Ratio 26.7 (6-22); Blood Urea Nitrogen 20 mg/dL (7-17); Calcium 8.9 mg/dL (8.4-10.2); Carbon Dioxide 24 mmol/L (22-32); Chloride 95 mmol/L (98-107); Creatine Kinase 65 U/L (30-135); Estimated Glomerular Filt Rate > 60 mL/min (>60); Glucose 130 mg/dL (80-110); HEMOLYSIS < 15 (0-50); Sodium 130 mmol/L (137-145)
[2023-02-11 21:28] LABS: NT-proBNP (BNP-Adult 18+) 7670 pg/mL (<450); Troponin I 0.037 ng/mL (0.01-0.034)
[2023-02-11 23:18] LABS: Creatine Kinase 62 U/L (30-135)
[2023-02-11 23:31] LABS: Troponin I 0.052 ng/mL (0.01-0.034)
[2023-02-12 00:09] VITALS: BP 128/70; PULSE 74; RESP 20; TEMP 36.6; O2SAT 96
== END 2023-02-12 00:10 | disposition home or self-care (01) ==
PROVIDERS: Emergency Provider Emergency Medicine; PCP Family Medicine
DX: J45.901 Unspecified asthma with (acute) exacerbation (principal); R07.9 Chest pain, unspecified; Z79.899 Other long term (current) drug therapy
CPT/HCPCS: 36415; 71045; 80048; 82550; 83880; 84484; 85025; 93005; 93010; 94640; 96374; 99284; 99285; J2930